=== PATIENT | female | born 1995 | race Caucasian/White ===

== ENCOUNTER → 2017-10-27 | Outpatient (REF) | payer BC, OTHER | LOC: M LAB REF 13:05 | DX: J11.1 Influenza due to unidentified influenza virus with other respiratory manifestations (principal) | CPT/HCPCS: 87633 ==

== ENCOUNTER 2018-04-18 12:10 | Emergency (ER) | payer BC, OTHER ==
[2018-04-18] MEDS: NORCO, ANEXSIA 5/325MG TABLET (HYDROcodone/ACETAMINOPHEN) PO (12:51)
== END 2018-04-18 13:38 | disposition home or self-care (01) ==
LOC: M ED 12:10
DX: M25.561 Pain in right knee (principal); Z87.828 Personal history of other (healed) physical injury and trauma; Z88.8 Allergy status to other drugs, medicaments and biological substances; Z88.1 Allergy status to other antibiotic agents; Z91.011 Allergy to milk products
CPT/HCPCS: 73564

== ENCOUNTER → 2018-04-26 | Outpatient (CLI) | payer BC | LOC: M RAD 17:42 | DX: M25.561 Pain in right knee (principal); M25.461 Effusion, right knee | CPT/HCPCS: 73721 ==

== ENCOUNTER → 2018-08-31 | Outpatient (CLI) | payer BC ==
[~2018-08-31] MED LIST: MOBI4TAB PO; NORCOTAB PO
[2018-08-31 12:01] LABS: ALT/SGPT 16 U/L (12-78); BILIRUBIN,TOTAL 0.2 MG/DL (0.2-1.0); GLOMERULAR FILTRATION RATE > 60.0 (>60); GLUCOSE CHALLENGE TEST 1 HOUR 109 MG/DL (LESS THAN 140); LDH LACTATE DEHYDROGENASE 191 U/L (84-246); URIC ACID 5.2 MG/DL (2.6-6.0)
[2018-08-31 12:29] LABS: BASO % 0.4 % (0.0-1.0); EOS # 0.1 10^3/uL (0.0-0.50); EOS % 1.1 % (0.0-3.0); HEMOGLOBIN 13.3 g/dl (12.0-15.5); LYMPH # 1.6 10^3/uL (1.5-6.5); LYMPH % 14.8 % (24.0-44.0); MEAN CORPUSCULAR HEMOGLOBIN 28.8 pg (27.0-33.0); MEAN CORPUSCULAR HGB CONC 34.1 g/dl (32.0-36.5); MEAN CORPUSCULAR VOLUME 84.4 fl (80.0-96.0); MONO # 0.5 10^3/uL (0.0-0.8); MONO % 4.9 % (0.0-5.0); NEUTROPHILS # 8.5 10^3/uL (1.8-7.7); NEUTROPHILS % 78.4 % (36.0-66.0); PLATELET COUNT, AUTOMATED 319 10^3/uL (150-450); RED BLOOD COUNT 4.62 10^6/uL (4.00-5.40); WHITE BLOOD COUNT 10.9 10^3/uL (4.0-10.0)
[2018-08-31 12:41] LABS: TOTAL PROTEIN,RANDOM URINE 16.2 MG/DL (0.0-12.0)
[2018-08-31 12:52] LABS: CHLAMYDIA DNA AMPLIFICATION NEGATIVE (NEGATIVE); GC DNA AMPLIFICATION NEGATIVE (NEGATIVE)
[2018-09-01 09:57] LABS: RUBELLA IgG QUALITATIVE IMMUNE (IMMUNE)
[2018-09-01 10:27] LABS: HEPATITIS C VIRUS ABY INDEX 0.1 INDEX (<0.8); HIV 1&2 SCREEN CENTAUR NEGATIVE (NEGATIVE)
== END ==
LOC: M LAB 09:29
PROVIDERS: ATTEND Obstetrics & Gynecology
DX: Z34.81 Encounter for supervision of other normal pregnancy, first trimester (principal)

== ENCOUNTER 2018-10-13 13:37 | Emergency (ER) | payer BC ==
[~2018-10-13] VITALS: Ht 172.7 cm; Wt 127.3 kg
[2018-10-13 13:38] VITALS: BP 147/83
[2018-10-13] MEDS ORDERED: AMOX-CLAV (13:51)
[2018-10-13] MEDS ORDERED: PRENTAB55 PO (13:51)
[2018-10-13] MEDS ORDERED: ACET500T15 PO (13:51)
[2018-10-13] MEDS ORDERED: ENOX40IN3 (13:51)
--- NOTE | 2018-10-13 14:40 | REP ---
Clinical: Left calf pain . Technique: Norris scale and color Doppler evaluation using linear high frequency transducer. Findings: Ultrasound examination of the left lower extremity deep venous structures from the common femoral vein to the popliteal vein demonstrates normal compressibility flow and wave patterns in response to respiration and augmentation. There is no evidence for deep venous thrombosis. Impression: No evidence for deep venous thrombosis. Electronically Signed by José Oliveira MD 10/13/2018 02:31 P
== END 2018-10-13 14:41 | disposition home or self-care (01) ==
LOC: M ED 13:37
DX: O99.412 Diseases of the circulatory system complicating pregnancy, second trimester (principal); M79.662 Pain in left lower leg; Z86.718 Personal history of other venous thrombosis and embolism; Z86.711 Personal history of pulmonary embolism; Z88.1 Allergy status to other antibiotic agents; Z88.8 Allergy status to other drugs, medicaments and biological substances; Z91.011 Allergy to milk products; Z79.01 Long term (current) use of anticoagulants; Z79.899 Other long term (current) drug therapy; Z3A.16 16 weeks gestation of pregnancy

== ENCOUNTER → 2018-11-15 | Outpatient (CLI) | payer BC ==
[~2018-11-15] MED LIST changes: +ACET500T15 PO; +AMOX-CLAV; +ENOX40IN3; +PRENTAB55 PO
--- NOTE | 2018-11-15 19:50 | REP ---
Clinical: Anatomical evaluation. Comparison: None . Findings: Examination demonstrates a single live intrauterine in cephalic presentation. motion is identified by technologist. Placenta is noted posterior fundal and grade grade zero without evidence for placenta previa or abruption. Amniotic fluid volume is normal. Cervix measures 3.8 cm in length and appears closed. No evidence for nuchal cord. Gestational age by LMP 20 weeks 6 days with KIRTI 03/29/2019 . Gestational age by current measurements 22 weeks 1 day with KIRTI 03/20/2019 . FHR equals 163 beats per minute. BPD 5.2 cm 21 weeks 5 days HC 19.2 cm 21 weeks 3 days AC 18.5 cm 23 weeks 2-day FL 3.9 cm 22 weeks 4-day HL 3.5 cm 21 weeks 6 days HC/AC ratio 1.04 Estimated weight 532 grams ( 65th percentile). Anatomical assessment demonstrates normal structures including cranium, choroid plexus, cavum, cerebellum/posterior fossa, facial features, lungs, diaphragm, stomach, cord insertion/three-vessel cord, kidneys/bladder, spine, and extremities. Impression: 1. Single live intrauterine in cephalic presentation demonstrating appropriate interval growth. 2. Limited evaluation of the heart and ventricular outflow tracts noted. Remainder of the anatomical assessment is complete and normal. Electronically Signed by José Oliveira MD 11/15/2018 07:41 P
== END ==
LOC: M RAD 16:31
PROVIDERS: ATTEND Obstetrics & Gynecology
DX: O10.011 Pre-existing essential hypertension complicating pregnancy, first trimester (principal); Z3A.22 22 weeks gestation of pregnancy

== ENCOUNTER → 2018-12-16 | Outpatient (CLI) | payer BC ==
[~2018-12-16] MED LIST changes: +HYDR-3715 PO; -NORCOTAB PO
[2018-12-16 15:36] LABS: HEMATOCRIT 37.9 % (36.0-47.0); HEMOGLOBIN 12.6 g/dl (12.0-15.5); MEAN CORPUSCULAR HEMOGLOBIN 28.9 pg (27.0-33.0); MEAN CORPUSCULAR HGB CONC 33.2 g/dl (32.0-36.5); MEAN CORPUSCULAR VOLUME 86.9 fl (80.0-96.0); PLATELET COUNT, AUTOMATED 295 10^3/uL (150-450); RED BLOOD COUNT 4.36 10^6/uL (4.00-5.40); WHITE BLOOD COUNT 14.6 10^3/uL (4.0-10.0)
== END ==
LOC: M LAB 14:12
PROVIDERS: ATTEND Advanced Practice Midwife
DX: O99.412 Diseases of the circulatory system complicating pregnancy, second trimester (principal); Z3A.00 Weeks of gestation of pregnancy not specified

== ENCOUNTER → 2018-12-16 | Outpatient (CLI) | payer BC ==
--- NOTE | 2018-12-16 14:31 | REP ---
Clinical: Anatomical evaluation. Comparison: 11/15/2018 . Findings: Examination demonstrates a single live intrauterine in breech presentation. motion is identified by technologist. Placenta is noted posterior fundal and grade the grade zero without evidence for placenta previa or abruption. Amniotic fluid volume is normal. Cervix measures 4.3 cm in length and appears closed. No evidence for nuchal cord. Gestational age by LMP 25 weeks 2 days with KIRTI 03/29/2019 . Gestational age by current measurements 26 weeks 0 days with KIRTI 03/24/2019 . FHR equals 140 beats per minute. Estimated weight 943 grams ( 40th percentile based on age by first ultrasound and 26 weeks 4 days ). Anatomical assessment demonstrates normal structures including cranium, choroid plexus, cavum, cerebellum/posterior fossa, facial features, lungs, four-chamber heart/ventricular outflow tracts, diaphragm, stomach, cord insertion/three-vessel cord, kidneys/bladder, and lower extremities. Impression: 1. Single live intrauterine in breech presentation demonstrating appropriate interval growth. 2. In conjunction with prior examination anatomical assessment is complete and normal. Electronically Signed by José Oliveira MD 12/16/2018 02:23 P
== END ==
LOC: M RAD 13:09
PROVIDERS: ATTEND Advanced Practice Midwife
DX: O99.412 Diseases of the circulatory system complicating pregnancy, second trimester (principal); O32.1XX0 Maternal care for breech presentation, not applicable or unspecified; Z3A.25 25 weeks gestation of pregnancy

== ENCOUNTER 2019-01-24 19:12 | Outpatient (CLI) | payer BC ==
[~2019-01-24] VITALS: Ht 172.7 cm; Wt 126.7 kg
[2019-01-24 19:35] VITALS: BP 137/73
[2019-01-24 20:07] LABS: APPEARANCE, URINE HAZY (CLEAR); BACTERIA, URINE AUTO 1+ (NEGATIVE); BILIRUBIN, URINE AUTO NEGATIVE (NEGATIVE); BLOOD, URINE BLOOD NEGATIVE (NEGATIVE); CALCIUM OXALATE CRYSTALS SMALL; COLOR, URINE YELLOW (YELLOW); GLUCOSE, URINE (UA) AUTO NEGATIVE (NEGATIVE); KETONE, URINE AUTO NEGATIVE (NEGATIVE); LEUKOCYTE ESTERASE, URINE AUTO TRACE (NEGATIVE); MUCUS, URINE SMALL (NEGATIVE); NITRITE, URINE AUTO NEGATIVE (NEGATIVE); PROTEIN, URINE AUTO NEGATIVE (NEGATIVE); RBC, URINE AUTO 2 /HPF (0-3); SPECIFIC GRAVITY URINE AUTO 1.023 (1.002-1.035); SQUAMOUS EPITHELIAL CELL UR AU 6 /HPF (0-6); UROBILINOGEN, URINE AUTO 0.2 mg/dL (0.0-2.0); WBC, URINE AUTO 7 /HPF (0-3)
[2019-01-24] MEDS ORDERED: LOVE1INJ SC (20:23)
[2019-01-24] MEDS ORDERED: PRENTAB9 PO (20:23)
--- NOTE | 2019-01-24 22:22 | IPNPDOC ---
Text Note Date of Service The patient was seen on 01/24/19. NOTE Subjective: Patient is a at 30.6 weeks gestation with an KIRTI of 03/29/19 based off of her LMP and consistent with her 1st trimester ultrasound. Her has been complicated with CHTN, a history of pulmonary embolism and current DVT-chronic in left iliac artery of left leg, and morbid obesity. She presents to L&D with complaints of abdominal tightening and that occurred over the weekend and stopped. Yesterday she reports at 2 pm some period like cramping, cervical pain, and abdominal tightening that did resolve. She reports this happened again today and she thought she should be seen for it. She reports when she does get the pain she rates it a 4/10. It is intermittent and not constant. She denies any vaginal bleeding, leaking of fluid, vaginal itching, vaginal discharge, or dysuria. She reports active movement. 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 Contractions every 2-5 minutes. A+Ox3. Respiratory: regular rate with no use of accessory muscles. Abdomen: gravid and soft to palpation. Speculum exam: cervix appears thick and about a FT dilated. FFN obtained and GBS obtained. SVE: cervical os is closed but external cervical os is about a FT, difficult to determine effacement. Urine analysis: see below. Assessment: IUP at 30.6 weeks gestation, contractions, Category I FHR t racing Plan: Patient given fluids and encouraged to drink. Cervical length ordered. Will send FFN if cervical length is less than 2.5 cm. A-FIB/CHADSVASC A-FIB History Current/History of A-Fib/PAF?: No Current Oral Anticoagulant The: No VS,Fishbone, I+O VS, Fishbone, I+O Vital Signs Date Time Temp Pulse Resp B/P (MAP) Pulse Ox O2 Delivery O2 Flow Rate FiO2 01/24/19 19:35 97.7 102 137/73 (94) Item Value Date Time Urine Color YELLOW 01/24/191938 Urine Appearance HAZY 01/24/191938 Urine pH 5.0 UNITS 01/24/191938 Urine Specific [place] 1.023 01/24/191938 Urine Protein NEGATIVE mg/dL 01/24/191938 Urine Glucose (UA) NEGATIVE mg/dL 01/24/191938 Urine Ketones NEGATIVE mg/dL 01/24/191938 Urine Blood NEGATIVE 01/24/191938 Urine Nitrite NEGATIVE 01/24/191938 Urine Bilirubin NEGATIVE 01/24/191938 Urine Urobilinogen 0.2 mg/dL 01/24/191938 Urine Leukocyte Esterase TRACE H 01/24/191938 Urine WBC (Auto) 7 /HPF H 01/24/191938 Urine RBC (Auto) 2 /HPF 01/24/191938 Urine Hyaline Casts (Auto) 0 /LPF 01/24/191938 Urine Bacteria (Auto) 1+ H 01/24/191938 Urine Squamous Epithelial Cells 6 /HPF 01/24/191938 Urine Calcium Oxalate Cryst (Auto) SMALL 01/24/191938 Urine Mucus (Auto) SMALL 01/24/191938 JONATHON SORENSON CNM January 24, 2019 22:22
--- NOTE | 2019-01-24 23:00 | REPVR ---
EXAM: US , Transvaginal EXAM DATE/TIME: 01/24/2019 10:20 PM CLINICAL HISTORY: 23 years old, female; Signs and symptoms; Lmp or gestational age (in weeks): Lmp 06/22/18; Labor and delivery abnormalities; Pre-term labor; Without delivery; ; Additional info: contractions and cervical length TECHNIQUE: Imaging protocol: Real-time transvaginal obstetrical ultrasound of the maternal pelvis and a first trimester with image documentation. Transvaginal imaging was used for better evaluation of the fetus and adnexa. COMPARISON: US OBS FOLL UP OR REPEAT EACH GES 12/16/2018 1:23 PM FINDINGS: GESTATION: Gestation: Single intrauterine fetus. Heart rate: heartbeat of 144 beats per minute. Presentation: Cephalic presentation. Placenta: Placenta is on the right laterally. MATERNAL: Cervix: The cervix measures 3.6-4.2 cm transvaginal with no beaking of the internal os. IMPRESSION: 1. Single live intrauterine fetus in cephalic presentation. 2. Closed cervix measuring 3.6-4.2 cm transvaginal with no beaking of the internal os. Electronically signed by: Elie Wolfe On 01/24/2019 23:00:31 PM
--- NOTE | 2019-01-24 23:07 | IPNPDOC ---
Text Note Date of Service The patient was seen on 01/24/19. NOTE Subjective: Patient reports she still feels some abdominal tightening but there is no pain with it. She also reports she does not feel any vaginal pain or menstrual like cramping anymore. She reports active movement. Objective: FHR 140. Reactive NST prior to sono. Abdomen soft with palpation. Cervical length via transvaginal ultrasound is 3.6 cm. Assessment: IUP at 30.6 week gestation; contractions, not in labor Plan: Patient discharged to home with . Patient instructed to call with any vaginal bleeding, leaking of fluid, more than 6 contractions in an hour that are more than abdominal tightening, decreased movement, fever, abdominal trauma, or any other danger signs. She is to follow-up next week with her routine OB appointment. A-FIB/CHADSVASC A-FIB History Current/History of A-Fib/PAF?: No Current Oral Anticoagulant The: No VS,Fishbone, I+O VS, Fishbone, I+O Vital Signs Date Time Temp Pulse Resp B/P (MAP) Pulse Ox O2 Delivery O2 Flow Rate FiO2 01/24/19 19:35 97.7 102 137/73 (94) JONATHON SORENSON CNM January 24, 2019 23:07
== END 2019-01-24 22:45 | disposition home or self-care (01) ==
LOC: M LDO 19:12
PROVIDERS: ATTEND Advanced Practice Midwife
DX: O26.893 Other specified pregnancy related conditions, third trimester (principal); R10.84 Generalized abdominal pain; O10.02 Pre-existing essential hypertension complicating childbirth; M79.605 Pain in left leg; M32.10 Systemic lupus erythematosus, organ or system involvement unspecified; O22.33 Deep phlebothrombosis in pregnancy, third trimester; I82.401 Acute embolism and thrombosis of unspecified deep veins of right lower extremity; O47.03 False labor before 37 completed weeks of gestation, third trimester; Z3A.30 30 weeks gestation of pregnancy
CPT/HCPCS: 59025; 76817; 81001; G0378; G0463

== ENCOUNTER → 2019-02-08 | Outpatient (CLI) | payer BC ==
[~2019-02-08] MED LIST changes: +LOVE1INJ SC; +PRENTAB9 PO
--- NOTE | 2019-02-08 16:50 | REP ---
OB ULTRASOUND: Real-time sonographic evaluation of the gravid uterus is performed. There is a single living intrauterine gestation, estimated gestational age 34 weeks 2 days, EDC 03/20/2019. Today's measurements indicate appropriate growth. BPD 86 mm = 34 weeks 4 days, 53rd percentile HC 307 mm = 34 weeks 2 days, 49th percentile AC 305 mm = 34 weeks 3 days, 52nd percentile FL 66 mm = 34 weeks 0 days, 46th percentile HC/AC ratio 1.01 within normal range. Estimated weight 3298 grams, 46th percentile. Cervix is closed and measures 4 cm in length. heart rate 146 beats per minute. Amniotic fluid within normal limits. EBER 10.8, within normal range of 8.0 to 24.8. S/D ratio 2.18, within normal range of 2.0 to 3.0. RI 0.54, slightly below normal range of 0.59 to 0.75. Visualized anatomy today includes the upper lip, stomach, cord insertion, three vessel cord, kidneys and bladder which are grossly unremarkable. position vertex. Placenta fundal and to the right, grade 0 with no previa or abruption. Electronically Signed by Zane Norris MD 02/08/2019 05:09 P
== END ==
LOC: M RAD 15:39
PROVIDERS: ATTEND Advanced Practice Midwife
DX: O10.013 Pre-existing essential hypertension complicating pregnancy, third trimester (principal); Z3A.34 34 weeks gestation of pregnancy

== ENCOUNTER → 2019-02-25 | Outpatient (CLI) | payer BC ==
[~2019-02-25] MED LIST changes: +HEPA1INJ5 SQ
[2019-02-25 13:27] LABS: HEMATOCRIT 38.4 % (36.0-47.0); HEMOGLOBIN 12.7 g/dl (12.0-15.5); MEAN CORPUSCULAR HGB CONC 33.1 g/dl (32.0-36.5); MEAN CORPUSCULAR VOLUME 81.5 fl (80.0-96.0); PLATELET COUNT, AUTOMATED 309 10^3/uL (150-450); RED BLOOD COUNT 4.71 10^6/uL (4.00-5.40); WHITE BLOOD COUNT 11.6 10^3/uL (4.0-10.0)
[2019-02-25 14:13] LABS: ALT/SGPT 27 U/L (12-78); BILIRUBIN,TOTAL 0.3 MG/DL (0.2-1.0); CREATININE FOR GFR 0.52 MG/DL (0.55-1.30); GLOMERULAR FILTRATION RATE > 60.0 (>60); LDH LACTATE DEHYDROGENASE 190 U/L (84-246); URIC ACID 4.5 MG/DL (2.6-6.0)
== END ==
LOC: M LAB 12:22
PROVIDERS: ATTEND Obstetrics & Gynecology
DX: O10.013 Pre-existing essential hypertension complicating pregnancy, third trimester (principal)

== ENCOUNTER → 2019-02-25 | Outpatient (REF) | payer BC ==
[2019-02-25 14:02] LABS: TOTAL PROTEIN,RANDOM URINE 17.5 MG/DL (0.0-12.0)
== END ==
LOC: M LAB REF 13:09
PROVIDERS: ATTEND Obstetrics & Gynecology
DX: O10.013 Pre-existing essential hypertension complicating pregnancy, third trimester (principal)

== ENCOUNTER 2019-02-28 11:30 | Outpatient (CLI) | payer BC ==
[2019-02-28] VITALS (10 sets, daily range): BP systolic 117–136; BP diastolic 56–75
[~2019-02-28] VITALS: Ht 172.7 cm; Wt 129.5 kg
[~2019-02-28 11:30] MED LIST changes: -ACET-683 PO; -HEPA1INJ5 SQ; -IBUP80TA PO
[2019-02-28] MEDS ORDERED: BETAMETHASONE SOLUSPAN 6MG/ML INJ 5ML (J0702) IM SCH (12:45)
[2019-02-28 13:17] LABS: HEMATOCRIT 37.8 % (36.0-47.0); HEMOGLOBIN 12.2 g/dl (12.0-15.5); MEAN CORPUSCULAR HEMOGLOBIN 26.4 pg (27.0-33.0); MEAN CORPUSCULAR HGB CONC 32.3 g/dl (32.0-36.5); MEAN CORPUSCULAR VOLUME 81.8 fl (80.0-96.0); PLATELET COUNT, AUTOMATED 290 10^3/uL (150-450); RED BLOOD COUNT 4.62 10^6/uL (4.00-5.40)
[2019-02-28 13:38] LABS: ALT/SGPT 34 U/L (12-78); BILIRUBIN,TOTAL 0.1 MG/DL (0.2-1.0); CREATININE FOR GFR 0.59 MG/DL (0.55-1.30); GLOMERULAR FILTRATION RATE > 60.0 (>60); LDH LACTATE DEHYDROGENASE 182 U/L (84-246); URIC ACID 4.9 MG/DL (2.6-6.0)
--- NOTE | 2019-02-28 17:51 | IPNPDOC ---
Text Note Date of Service The patient was seen on 02/28/19. NOTE Subjective: Patient is a 23-year-old female who is 35.6 weeks gestation with an KIRTI of 03/29/19 based off of her LMP and consistent with her 1st trimester ultrasound. Her has been complicated by CHTN, +lupus anticoagulants, a history of bilateral pulmonary embolisms and a chronic DVT in her left leg in the iliac artery. She is on Lovenox daily and is going to make the switch to heparin. She was sent to L&D today by Dr. Beach for betamethasone injections. She is scheduled for 37 weeks for an IOL but has had increasing BP's but not in severe ranges. Her BP in office today was 156/88. She denies any preeclamptic signs or symptoms. She reports active movement. She denies contractions, leaking of fluid. or vaginal bleeding. Objective: VS and labs: See below. FHR: 125, moderate variability, positive accelerations, no decelerations. Contractions: occasional. Assessment: IUP at 35.6 weeks gestation, SLE, CHTN, Category I FHR Plan: Discharged to home with mother. She is to return at 1300 tomorrow. Reviewed access to care, kick count, labor signs, and danger signs to report. Extensive counseling done on preeclamptic signs. VS,Karmene, I+O VS, Vincentbone, I+O Laboratory Tests 02/28/19 12:59 Red Blood Count 4.62, Mean Corpuscular Volume 81.8, Mean Corpuscular Hemoglobin 26.4 L, Mean Corpuscular Hemoglobin Concent 32.3, Red Cell Distribution Width 13.2, Aspartate Amino Transf (AST/SGOT) 24, Alanine Aminotransferase (ALT/SGPT) 34, Lactate Dehydrogenase 182, Total Bilirubin 0.1 L, Uric Acid 4.9 Item Value Date Time Urine Random Creatinine 87.9 MG/DL 02/28/19 1440 Urine Random Total Protein 8.5 MG/DL 02/28/19 1440 Vital Signs Date Time Temp Pulse Resp B/P (MAP) Pulse Ox O2 Delivery O2 Flow Rate FiO2 02/28/19 15:41 92 16 121/56 (77) 02/28/19 15:11 98.6 02/28/19 12:01 98 Vital Signs Label Value Date Time Patient Temperature 97.9 degrees F 02/28/19 1201 Temperature Source Temporal 02/28/19 1201 Pulse 99 02/28/19 1201 Respiratory Rate 16 bpm 02/28/19 1201 Blood Pressure Assessment 134/61 (85) 02/28/19 1201 Source Automatic Cuff (NIBP) Bedside Pulse Oximetry 98 % 02/28/19 1201 JONATHON SORENSON CNM Feb 28, 2019 17:51
[2019-03-01] MEDS ORDERED: HEPA1INJ5 SQ (13:22)
== END 2019-02-28 16:30 | disposition home or self-care (01) ==
LOC: M LDO 11:30
PROVIDERS: ATTEND Advanced Practice Midwife
DX: O16.9 Unspecified maternal hypertension, unspecified trimester (principal); O99.119 Other diseases of the blood and blood-forming organs and certain disorders involving the immune mechanism complicating pregnancy, unspecified trimester; O26.893 Other specified pregnancy related conditions, third trimester; M32.10 Systemic lupus erythematosus, organ or system involvement unspecified; O99.89 Other specified diseases and conditions complicating pregnancy, childbirth and the puerperium; Z86.711 Personal history of pulmonary embolism; Z79.01 Long term (current) use of anticoagulants; Z3A.35 35 weeks gestation of pregnancy
CPT/HCPCS: 36415; 59025; 82247; 82565; 82570; 83615; 84156; 84450; 84460; 84550; 85027; 96372; G0378; G0463; J0702

== ENCOUNTER → 2019-02-28 | Outpatient (REF) | payer BC ==
[~2019-02-28] MED LIST changes: +ACET-683 PO; +IBUP80TA PO
== END ==
LOC: M LAB REF 12:56
PROVIDERS: ATTEND Obstetrics & Gynecology
DX: O10.013 Pre-existing essential hypertension complicating pregnancy, third trimester (principal)

== ENCOUNTER 2019-03-01 12:52 | Inpatient (IN) | payer BC ==
[2019-03-01] VITALS (32 sets, daily range): BP systolic 110–143; BP diastolic 56–87
[~2019-03-01] VITALS: Ht 172.7 cm; Wt 128.4 kg
[2019-03-01] MEDS ORDERED: HEPA1INJ5 SQ (13:22)
[2019-03-01] MEDS ORDERED: BETAMETHASONE SOLUSPAN 6MG/ML INJ 5ML (J0702) IM ONE (17:00)
[2019-03-01] MEDS ORDERED: FIORICET TAB PO ONE (19:30)
[2019-03-01] MEDS ORDERED: LR 1,000 ML IV SCH (20:06)
[2019-03-01] MEDS ORDERED: LACTATED RINGER'S 1000 ML IV STA (20:06)
[2019-03-01] MEDS ORDERED: ACETAMINOPHEN 500 MG TAB PO ONE (20:45)
[2019-03-01 21:21] LABS: HEMOGLOBIN 12.3 g/dl (12.0-15.5); MEAN CORPUSCULAR HEMOGLOBIN 26.8 pg (27.0-33.0); MEAN CORPUSCULAR HGB CONC 33.2 g/dl (32.0-36.5); MEAN CORPUSCULAR VOLUME 80.6 fl (80.0-96.0); PLATELET COUNT, AUTOMATED 308 10^3/uL (150-450); RED BLOOD COUNT 4.59 10^6/uL (4.00-5.40)
[2019-03-01 21:32] LABS: ALT/SGPT 41 U/L (12-78); BILIRUBIN,TOTAL 0.3 MG/DL (0.2-1.0); CREATININE FOR GFR 0.67 MG/DL (0.55-1.30); GLOMERULAR FILTRATION RATE > 60.0 (>60); LDH LACTATE DEHYDROGENASE 723 U/L (84-246); URIC ACID 5.9 MG/DL (2.6-6.0)
[2019-03-01] MEDS ORDERED: OXYTOCIN DRIP 30 UNITS in APPROPRIATE DILUENT 1 EA IV SCH (22:30)
--- NOTE | 2019-03-01 23:40 | NUR ---
L&D H&P 23yo at 36+0 weeks EGA. Her is dated by a first TM US. Presents today with continued complaints of intermittent headaches, fatigue, chest discomfort/palpitations, and shortness of breath. She has a diagnosis of CHTN and has been evaluated on multiple occasions during the third trimester for superimposed pre-eclampsia. Although labs have been within normal limits, she continues to have classic symptoms of pre-eclampsia. Her BP has been intermittently elevated during her multiple evaluations. Reports +FM. Denies VB/LOF/uctx. history / course: 1. First complicated by severe pre-e, successful IOL at 37 weeks. 2. DVT/bilateral PE; currently on intermediate dosing of VTE prophylaxis. Pt had AM dose of Heparin 10K SC 3. Obesity 4. Chronic hypertension 5. Steroid course completed today; first dose on 02/28. PN labs: A+, ABscreen negative, Rub Imm, HIV neg, HepBsAg NR, RPR NR, GC/CT neg, GDM screening negative. GBS pending. PMH: CHTN, h/o VTE SH: T&A Meds: PNV, Heparin 10K SC BID (recently transitioned from Lovenox 40mg BID) All: Cephalosporins, budesonide OB: G1, , IOL at 37 weeks c/b severe pre-e and VTE. JEWEL STRINGER: No dysplasia or STI/gHSV Sochx: no t/e/d Intermittently hypertensive, normal HR, afebrile Gen: A&Ox4. H: RRR no m/g/r L: CTA b/l no w/c/r/r Abd: soft, nt, nd, uterine fundus nontender Ext: no c/c/e FHR: Cat I [place]: no ctxs Labs: see [employer] A/P: 23yo at 36+0 weeks. CHTN w/ superimposed pre-e (by symptoms). steroid course completed. Reassuring status. -Discussed plan for IOL secondary to dx of CHTN w/ superimposed pre-e. Pt in full agreement. -Mag sulfate if symptoms progress/intensify, IV antihypertensives PRN. -IOL via Cook balloon and Pit. -Monitor closely. -Hold VTE prophylaxis for now; restart once bleeding deemed stable/controlled. -GBS prophylaxis until status is known. Levar Beach, DO
[2019-03-01] MEDS ORDERED: PENICILLIN G POTASSIUM IV 5 MU in D5W MINI-BAG PLUS 100 ML IV STA (23:52)
[2019-03-02] VITALS (36 sets, daily range): BP systolic 109–147; BP diastolic 50–73
[2019-03-02] MEDS: PENICILLIN G POTASSIUM IV 2.5 MU in APPROPRIATE DILUENT 1 EA IV SCH ×3 (00:20→07:53)
--- NOTE | 2019-03-02 10:04 | NUR ---
Progress Note Pt had Cook balloon fall out around 0400. No VB/LOF. Currently denies symptoms of NAZARIO, visual changes, RUQ pain, sob, cp. Currently normotensive, normal HR, afebrile SVE at 0700: 4/50/-3, cephalic, intact, no bloody show, mid-position/soft. EFM: Cat I [place]: irreg ctx's ; pit at 10mU/min A/P: Pre-e. IOL. Reassuring status. -Continue pitocin -Consider TRISTAN Beach, DO
[2019-03-02] MEDS ORDERED: BUTORPHANOL 2 MG/ML INJ (J0595) IV ONE (21:45)
[2019-03-02] MEDS ORDERED: PROMETHAZINE INJ 25 MG/ML VIAL (J2550) IV ONE (21:45)
[2019-03-03] MEDS ORDERED: OXYTOCIN 30 UNITS IN 0.9% NaCl 500ML IV BAG (J2590) As Ordered ONE (00:18)
[2019-03-03] MEDS ORDERED: OXYTOCIN DRIP 30 UNITS in APPROPRIATE DILUENT 1 EA IV SCH (00:22)
[2019-03-03] MEDS ORDERED: DOCUSATE SODIUM 100 MG CAP PO PRN (00:30)
[2019-03-03] MEDS ORDERED: RHOGAM 300 MCG (1500 IU) INJ (J2790) IM SCH (00:30)
[2019-03-03] MEDS ORDERED: ACETAMINOPHEN 500 MG TAB PO PRN (00:30)
[2019-03-03] MEDS ORDERED: DIBUCAINE 1% OINTMENT 30GM TOP PRN (00:30)
[2019-03-03] MEDS ORDERED: MEASLES,MUMPS,RUBELLA VACCINE INJ (MMR-II) (90707) SC SCH (00:30)
[2019-03-03] MEDS ORDERED: ACETAMINOPHEN TAB 650MG DOSE (2X325MG) PO PRN (00:30)
[2019-03-03] MEDS ORDERED: IBUPROFEN 600 MG TAB PO PRN (00:30)
[2019-03-03 03:13] VITALS: BP 133/63
--- NOTE | 2019-03-03 04:59 | DN ---
DATE: 03/03/2019 Michael is a 23-year-old 2, para 1-1-0-2 now was admitted to labor and delivery for induction of labor. Intravenous (IV) Pitocin Gomez bulb was utilized and labor did ensue. She did use IV pain medications to cope with her labor. She did reach full dilation at 2356. She pushed to a normal spontaneous vaginal delivery of a live female in occiput anterior (OA) position with restitution to right occiput transverse (ROT) position at 2358. There was a nuchal cord times one tight that was reduced with somersault maneuver at the time of delivery. [place] shoulders delivered with gentle downward traction and the corpus immediately followed. The female was placed on the maternal abdomen crying and active. Mouth and nares were bulb suctioned. The cord was clamped x2 and cut by the father of the baby under my direction. Cord blood was obtained. Manual removal of an intact placenta with three-vessel cord was at 004. Uterine hemostasis achieved with IV Pitocin rapid infusion and uterine fundal massage. Estimated blood loss 350 mL. Perineum and vagina were inspected and noted to be intact. The female weighed 3360 grams, 7 pounds and 7 ounces, Apgars 9 and 9 and nine family have named their daughter Hyun and the mom is going to breastfeed her baby. At the close of delivery lap counts and instrument counts were correct and verified.
[2019-03-03 06:11] VITALS: BP 144/69
[2019-03-03] MEDS: PRENATAL VITAMINS CHEWABLE TABLET PO SCH (07:35)
[2019-03-03] MEDS: IBUPROFEN 800 MG TAB PO PRN ×2 (17:15→21:22)
[2019-03-03 18:00] VITALS: BP 125/63
[2019-03-04 06:00] VITALS: BP 135/69
[2019-03-04] MEDS ORDERED: ACET-683 PO (07:09)
[2019-03-04] MEDS ORDERED: IBUP80TA PO (07:09)
[2019-03-04] MEDS: PRENATAL VITAMINS CHEWABLE TABLET PO SCH (09:38)
[2019-03-04] MEDS: IBUPROFEN 800 MG TAB PO PRN (09:38)
== END 2019-03-04 10:15 | disposition home or self-care (01) | DRG 560 ==
LOC: M LDO 12:52 → M LDI 20:08 → M OBS 03-03 02:49
PROVIDERS: ADMIT Obstetrics & Gynecology; ATTEND Obstetrics & Gynecology
PROC: 3E033VJ Introduction of Other Hormone into Peripheral Vein, Percutaneous Approach (ICD-10-PCS; 2019-03-01)
PROC: 10E0XZZ Delivery of Products of Conception, External Approach (ICD-10-PCS; principal; 2019-03-03)
DX: O11.4 Pre-existing hypertension with pre-eclampsia, complicating childbirth (principal); E66.9 Obesity, unspecified; Z37.0 Single live birth; Z3A.36 36 weeks gestation of pregnancy; O99.214 Obesity complicating childbirth; O69.89X0 Labor and delivery complicated by other cord complications, not applicable or unspecified; O73.0 Retained placenta without hemorrhage

== ENCOUNTER 2019-03-28 17:39 | Inpatient (IN) | payer BC ==
[~2019-03-28] VITALS: Ht 172.7 cm; Wt 117.0 kg
[~2019-03-28 17:39] MED LIST changes: +ACET-683 PO; +HEPA1INJ5 SQ; +IBUP80TA PO
[2019-03-28] MEDS ORDERED: ENOX40IN3 SC (17:50)
[2019-03-28] MEDS ORDERED: ADVI100T PO (17:50)
[2019-03-28] MEDS ORDERED: ISOVUE-370 76% 100ML VIAL (Q9967) As Ordered ONE (18:23)
[2019-03-28 18:49] LABS: INR 1.06; PROTHROMBIN TIME 13.5 SECONDS (11.8-14.0)
[2019-03-28 18:50] LABS: PARTIAL THROMBOPLASTIN TIME 29.9 SECONDS (25.0-38.4)
[2019-03-28] MEDS ORDERED: IBUP200C25 PO (18:58)
[2019-03-28] MEDS ORDERED: ENOXAPARIN 100MG/1ML SYRINGE (J1650) SC ONE (19:00)
--- NOTE | 2019-03-28 19:00 | REPVR ---
EXAM: CT Angiography Chest With Contrast EXAM DATE/TIME: 03/28/2019 5:53 PM CLINICAL HISTORY: 24 years old, female; Pain; Other: Left ribs; Additional info: R/O pe TECHNIQUE: Imaging protocol: Axial computed tomographic angiography images of the chest with intravenous contrast using CT angiography protocol. Coronal and sagittal reformatted images were created and reviewed. 3D rendering: MIP reconstructed images were created and reviewed. Radiation optimization: All CT scans at this facility use at least one of these dose optimization techniques: automated exposure control; mA and/or kV adjustment per patient size (includes targeted exams where dose is matched to clinical indication); or iterative reconstruction. Contrast material: ISOVUE 370; Contrast volume: 75 ml; Contrast route: IV; COMPARISON: CT ANGIO CHEST 08/26/2012 12:33 PM FINDINGS: Pulmonary arteries: The study is highly positive for pulmonary embolus bilaterally. There is a moderate to large sized filling defect of the descending left pulmonary artery and extending into multiple branches of the pulmonary artery left infrahilar region to the left lung base. There is a large filling defect in the descending right pulmonary artery consistent with a focal large pulmonary embolus. Moderate-sized emboli extend into infrahilar branches. Aorta: There is opacification of the aorta which appears intact. Lungs: There is a 4 CM oval area of density at the left lung base consistent with atelectasis and infiltrate probably related to the left pulmonary embolus. This involves the left lower lobe. Smaller patchy areas left base of the lung are also noted. Pleural space: There is no evidence of pneumothorax. There is no evidence of pleural effusion. Heart: There is mild prominence of the heart. There is no pericardial effusion. IMPRESSION: 1. Moderate to large pulmonary emboli right and left lower lobe pulmonary artery with moderate emboli extending into the infrahilar pulmonary arteries to the lung bases. 2. 4 cm area atelectasis and infiltrate left lung base probably related to the pulmonary embolus. Electronically signed by: Jose Henriquez On 03/28/2019 19:00:04 PM
[2019-03-28 19:17] LABS: BLOOD UREA NITROGEN 9 MG/DL (7-18); CALCIUM LEVEL 9.3 MG/DL (8.5-10.1); CARBON DIOXIDE LEVEL 27 MEQ/L (21-32); CHLORIDE LEVEL 107 MEQ/L (98-107); CREATININE FOR GFR 0.99 MG/DL (0.55-1.30); GLOMERULAR FILTRATION RATE > 60.0 (>60); GLUCOSE, FASTING 84 MG/DL (70-100); POTASSIUM SERUM 4.4 MEQ/L (3.5-5.1); SODIUM LEVEL 142 MEQ/L (136-145)
--- NOTE | 2019-03-28 19:55 | HPEPDOC ---
General Date of Admission 03/28/2019 Date of Service: Mar 28, 2019 Attending Physician: JUANCARLOS DAMON MD Chief Complaint The patient is a 24-year-old female admitted with a reason for visit of Rosalinda sullivan. History of Present Illness Patient is a 24-year-old female, presenting to the emergency room on account of chest pain and shortness of breath of sudden onset. Patient has a past medical history significant for hypertension complicating , lupus anticoagulant, pulmonary hypertension, DVT, iliac vein, morbid obesity. On presentation she was found to be tachycardic and tachypneic. CTA completed was positive for moderate to large pulmonary emboli, right and left lower lobe pulmonary artery with moderate emboli extending to Infrahilar pulmonary arteries to lung bases. There was also 2.4 cm area of atelectasis and infiltrate to the left lung base, probably related to pulmonary emboli. Patient is 3 weeks and was on 30 mg Lovenox twice a day, during and currently. She reports been placed on clonidine for a year and a 7:30 years ago when she first had her first and had pulmonary emboli and DVT. Hematology studies revealed patient was lupus anticoagulant positive. She described the pain as a sharp pain to her left sternum with radiation to read's, back, bilateral shoulder blades. At time of assessment, shortness of breath was improved and patient was saturating 97% on room air. Home Medications Scheduled Enoxaparin Sodium (Enoxaparin Sodium) 40 Mg/0.4 Ml Syringe, 40 MG SC BID, (Reported) Scheduled PRN Ibuprofen (Ibuprofen) 200 Mg Capsule, 600 MG PO BID PRN for PAIN, (Reported) Allergies Coded Allergies: bee venom protein (honey bee) (Verified Allergy, Severe, throat swelling, 02/28/19) Cephalosporins (Verified Allergy, Intermediate, HIVES, 01/24/19) budesonide (Verified Allergy, Intermediate, HIVES, 02/28/19) as a child Past Medical History Medical History Morbid obesity. DVT Pulmonary hypertension. Pulmonary emboli Hypertension in . Lupus anticoagulant syndrome Surgical History Tonsils and adenoids removal Ear tubes placement Family History Denies significant family history Social History * Smoker: Denies Alcohol: occationally Drugs: denies A-FIB/CHADSVASC A-FIB History Current/History of A-Fib/PAF?: No Current PO Anticoag Therapy: No Review of Systems Other systems A 10 point pertinent review of systems was completed, negative except as stated in the history of presenting illness. Physical Examination Other physical findings GENERAL: Obese female in no acute distress SKIN : Warm, dry intact HEENT: Atraumatic, normocephalic, PERRL, moist mucous membrane CARDIOVASCULAR: Regular rate and rhythm, S1S2, no JVD, no edema, distal pulses + and palpable RESP: CTAB, no accessory muscle use noted ABDOMEN: BS+ non distended non tender MS: no joint deformities NEURO: Alert and oriented x 3, CN2-12 grossly intact PSYCH: no anxiety or agitation, appropriate mood and affect. Vital Signs Vital Signs Date Time Temp Pulse Resp B/P (MAP) Pulse Ox O2 Delivery O2 Flow Rate FiO2 03/28/19 18:10 03/28/19 18:10 Room Air 03/28/19 17:40 98.4 125 22 97 Laboratory Data Labs 24H Laboratory Tests 2 03/28/19 17:53: Anion Gap 8, Glomerular Filtration Rate > 60.0, Blood Urea Nitrogen 9, Creatinine 0.99, Sodium Level 142, Potassium Level 4.4, Chloride Level 107, Carbon Dioxide Level 27, Calcium Level 9.3 03/28/19 18:00: Prothrombin Time 13.5, Prothromb Time International Ratio 1.06, Activated Partial Thromboplast Time 29.9 CBC/BMP Laboratory Tests 03/28/19 17:53 Calcium Level 9.3 Assessment/Plan Bilateral pulmonary emboli -Occurring in the period. 3 weeks after delivery -Recurrent, prior episode 7 years ago with first and delivery -While on prophylactic dose Lovenox 30 mg subcutaneous twice a day -Ultrasound bilateral lower extremity to evaluate clot burden -Consult vascular surgery for evaluation and input given underlying pulmonary hypertension -Lovenox 120 mg twice a day -2-D echocardiogram to evaluate for right heart strain and extent of pulmonary hypertension Elevated blood pressure -Patient reports history of hypertension in without preeclampsia -Monitor blood pressure with treatment of underlying pulmonary emboli -If persistently elevated and pulmonary pressures elevated, will initiate antihypertensive -Blood pressure monitoring every 4 hours Lupus anticoagulant syndrome -We'll need outpatient referral for discharge with hematology oncology -For determination of long-term care and prevention of possible future occurrences Morbid obesity -Complicating care Plan / VTE VTE Prophylaxis Ordered?: Yes Attending Note I performed a history and physical examination of the patient and discussed the management with the nurse practitioner. I reviewed the nurse practitioner's note and agree with documented findings and plan of care. OTUERNIE LEES Mar 28, 2019 19:55 JUANCARLOS DAMON MD Mar 29, 2019 06:32
[2019-03-28 20:22] LABS: BASO % 0.3 % (0.0-1.0); EOS # 0.3 10^3/uL (0.0-0.50); EOS % 1.7 % (0.0-3.0); HEMATOCRIT 41.3 % (36.0-47.0); HEMOGLOBIN 13.2 g/dl (12.0-15.5); LYMPH # 1.8 10^3/uL (1.5-6.5); MEAN CORPUSCULAR HEMOGLOBIN 25.9 pg (27.0-33.0); MONO # 0.8 10^3/uL (0.0-0.8); MONO % 5.2 % (0.0-5.0); NEUTROPHILS # 11.8 10^3/uL (1.8-7.7); NEUTROPHILS % 80.2 % (36.0-66.0); PLATELET COUNT, AUTOMATED 397 10^3/uL (150-450); WHITE BLOOD COUNT 14.7 10^3/uL (4.0-10.0)
--- NOTE | 2019-03-28 20:44 | REPVR ---
EXAM: US Duplex Bilateral Lower Extremity Veins EXAM DATE/TIME: 03/28/2019 8:31 PM CLINICAL HISTORY: 24 years old, female; Other: CT multiple pe's; Additional info: Multiple pes TECHNIQUE: Imaging protocol: Real-time duplex ultrasound of the Bilateral Lower Extremities with 2-D wheatley scale, color Doppler flow and spectral waveform analysis. Complete exam focused on the bilateral lower extremity veins. COMPARISON: US Duplex, Ext,LOWER veins,unilat 10/13/2018 2:22 PM FINDINGS: Right deep veins: Unremarkable. The common femoral, femoral, proximal profunda femoral and popliteal veins are patent without thrombus. Normal Doppler waveforms. Normal compressibility and/or augmentation response. Right superficial veins: Saphenofemoral junction is patent without thrombus. Left deep veins: Unremarkable. The common femoral, femoral, proximal profunda femoral and popliteal veins are patent without thrombus. Normal Doppler waveforms. Normal compressibility and/or augmentation response. Left superficial veins: Saphenofemoral junction is patent without thrombus. Soft tissues: Unremarkable. IMPRESSION: No acute findings. No evidence of deep vein thrombosis. Electronically signed by: Jose Henriquez On 03/28/2019 20:44:13 PM
--- NOTE | 2019-03-28 20:58 | ECGEPIP ---
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
[2019-03-29 00:04] VITALS: BP 139/87
[2019-03-29] MEDS: ACETAMINOPHEN TAB 650MG DOSE (2X325MG) PO PRN ×4 (00:46→14:49)
[2019-03-29 04:00] VITALS: BP 138/72
[2019-03-29] MEDS: PERCOCET 5MG/325MG TAB PO PRN ×3 (05:41→19:41)
[2019-03-29 07:41] LABS: HEMATOCRIT 40.1 % (36.0-47.0); HEMOGLOBIN 13.1 g/dl (12.0-15.5); MEAN CORPUSCULAR HEMOGLOBIN 26.6 pg (27.0-33.0); MEAN CORPUSCULAR HGB CONC 32.7 g/dl (32.0-36.5); MEAN CORPUSCULAR VOLUME 81.3 fl (80.0-96.0); PLATELET COUNT, AUTOMATED 323 10^3/uL (150-450); RED BLOOD COUNT 4.93 10^6/uL (4.00-5.40); WHITE BLOOD COUNT 12.2 10^3/uL (4.0-10.0)
[2019-03-29 08:13] LABS: ALBUMIN 2.9 GM/DL (3.2-5.2); ALT/SGPT 21 U/L (12-78); BILIRUBIN,TOTAL 0.5 MG/DL (0.2-1.0); BLOOD UREA NITROGEN 8 MG/DL (7-18); CARBON DIOXIDE LEVEL 26 MEQ/L (21-32); CHLORIDE LEVEL 107 MEQ/L (98-107); GLOMERULAR FILTRATION RATE > 60.0 (>60); GLUCOSE, FASTING 103 MG/DL (70-100); POTASSIUM SERUM 3.9 MEQ/L (3.5-5.1); SODIUM LEVEL 140 MEQ/L (136-145); TOTAL PROTEIN 6.7 GM/DL (6.4-8.2)
[2019-03-29 08:40] VITALS: BP 131/75
[2019-03-29] MEDS ORDERED: ENOXAPARIN 120 MG/0.8 ML SYR (J1650) SC SCH (09:00)
--- NOTE | 2019-03-29 09:11 | CR.PDOC ---
General Date of Consultation: Mar 29, [address] Ayers HPI: Patient is a 24-year-old female, presenting to the emergency room with chest pain and shortness of breath of sudden onset 03/28/19, she described CP as a sharp pain to her left sternum with radiation to back, bilateral shoulder blades. She was found to be tachycardic and tachypneic in the ED. CTA indicated moderate to large pulmonary emboli, right and left lower lobe pulmonary artery with moderate emboli extending to Infrahilar pulmonary arteries to lung bases. Of note, the pt is 3 weeks and was on 40 mg Lovenox twice a day during /post and this was continued up to her admission. Vascular surgery is consulted re PE. This AM she states she still has some left sided chest tenderness but overall CP is improved, breathing is better, no radiating pain. Sitting on side of bed and feels comfortable. Denies any fevers, chills, weakness, fatigue, Headache, cough, palpitations, abdominal pain, N/V/D or changes in bowel or bladder habits. PMHx: H/O hypertension complicating , on clonidine in past. lupus anticoagulant positive, seen by Hematology in past pulmonary hypertension, H/O PE/DVT post 2011. On Lovenox, transitioned to Coumadin, AC discontinued 2013 per pt. H/O chronic DVT LLE. Previously followed as per Dr Olivia Kay. obesity. BMI 39.8. PSHX: tonsillectomy,adenoidectomy. tympanostomy tubes SOCHX: Tobacco use: denies ETOH: occasional Illicit Drugs: Denies FAMHX: denies FH of blood clotting disorders. ROS: As noted in HPI, otherwise 11pt ROS of systems reviewed and unremarkable, pt states she is not . PE: GEN: 24yoF, appears stated age. Well-nourished, well developed. No acute distress. Alert and oriented x 3. Pleasant, interactive. HEENT: Normocephalic, atraumatic. Sclera are nonicteric. Conjunctiva without injection. Nose midline. No facial asymmetry. Moist mucous membranes. CHEST: Regular rate and rhythm, +S1, +S2 LUNGS: Clear to auscultation bilaterally. No wheezes, rales, or rhonchi. Breathing appears symmetric and easy. Patient is speaking in full sentences. No accessory muscle use. ABD: Round, soft, non-tender, non-distended. +Bowel sounds throughout. No rebound or guarding. EXT: Pulses 2+ bilaterally dorsalis pedis and radial. No lower extremity edema appreciated. SKIN: [place], dry, warm. Capillary refill <2sec. No rashes. NEURO: Alert and oriented x 3. Cranial nerves III-XII are intact. No focal deficits appreciated. CTA Chest IMPRESSION: 1. Moderate to large pulmonary emboli right and left lower lobe pulmonary artery with moderate emboli extending into the infrahilar pulmonary arteries to the lung bases. 2. 4 cm area atelectasis and infiltrate left lung base probably related to the pulmonary embolus. Electronically signed by: Jose Everett On 03/28/2019 19:00:04 PM DD: JOSE EVERETT MD 03/28/19 1753 LE US IMPRESSION: No acute findings. No evidence of deep vein thrombosis. Electronically signed by: Jose Everett On 03/28/2019 20:44:13 PM EKG SINUS TACHYCARDIA Nonspecific T wave abnormality Comparison tracing not on file Electronically Signed on 03-28-2019 20:58:13 EDT by Joby Ramirez DD: JOBY RAMIREZ MD 03/28/19 1910 A&P: Bilateral PE PCU/TM. VSS. HR83, RR18, Sat 97RA. Lovenox 120mg SC Q12. TTE pending. The pt has been reviewed and examined as per Dr Ayers, he has discussed risks/benefits of thrombolysis with the pt. Await TTE results. H/O DVT/PE. On Lovenox prior to admission. H/O LA positive. Thank you for your consultation. We will continue to follow along with you. Vital Signs/I&O Vital Signs Date Time Temp Pulse Resp B/P (MAP) Pulse Ox O2 Delivery O2 Flow Rate FiO2 03/29/19 06:11 18 03/29/19 04:00 97.7 83 138/72 (94) 97 03/28/19 18:10 Room Air I&O- Last 24 Hours up to 6 AM 03/29/19 06:00 Intake Total 0 ml Output Total 400 ml Balance -400 ml Laboratory Data Labs 24H Laboratory Tests 2 03/28/19 17:53: Immature Granulocyte % (Auto) 0.6, White Blood Count 14.7H, Red Blood Count 5.10, Hemoglobin 13.2, Hematocrit 41.3, Mean Corpuscular Volume 81.0, Mean Corpuscular Hemoglobin 25.9L, Mean Corpuscular Hemoglobin Concent 32.0, Red Cell Distribution Width 13.6, Platelet Count 397, Neutrophils (%) (Auto) 80.2H, Lymphocytes (%) (Auto) 12.0L, Monocytes (%) (Auto) 5.2H, Eosinophils (%) (Auto) 1.7, Basophils (%) (Auto) 0.3, Neutrophils # (Auto) 11.8H, Lymphocytes # (Auto) 1.8, Monocytes # (Auto) 0.8, Eosinophils # (Auto) 0.3, Basophils # (Auto) 0.0, Nucleated Red Blood Cells % (auto) 0.0, Anion Gap 8, Glomerular Filtration Rate > 60.0, Blood Urea Nitrogen 9, Creatinine 0.99, Sodium Level 142, Potassium Level 4.4, Chloride Level 107, Carbon Dioxide Level 27, Calcium Level 9.3 03/28/19 18:00: Prothrombin Time 13.5, Prothromb Time International Ratio 1.06, Activated Partial Thromboplast Time 29.9 03/29/19 07:30: Nucleated Red Blood Cells % (auto) 0.0 CBC/BMP Laboratory Tests 03/28/19 17:53 Red Blood Count 5.10, Mean Corpuscular Volume 81.0, Mean Corpuscular Hemoglobin 25.9 L, Mean Corpuscular Hemoglobin Concent 32.0, Red Cell Distribution Width 13.6, Neutrophils (%) (Auto) 80.2 H, Lymphocytes (%) (Auto) 12.0 L, Monocytes (%) (Auto) 5.2 H, Eosinophils (%) (Auto) 1.7, Basophils (%) (Auto) 0.3, Neutrophils # (Auto) 11.8 H, Lymphocytes # (Auto) 1.8, Monocytes # (Auto) 0.8, Eosinophils # (Auto) 0.3, Basophils # (Auto) 0.0, Calcium Level 9.3 03/29/19 07:30 Red Blood Count 4.93, Mean Corpuscular Volume 81.3, Mean Corpuscular Hemoglobin 26.6 L, Mean Corpuscular Hemoglobin Concent 32.7, Red Cell Distribution Width 13.6 Allergies Coded Allergies: bee venom protein (honey bee) (Verified Allergy, Severe, throat swelling, 02/28/19) Cephalosporins (Verified Allergy, Intermediate, HIVES, 01/24/19) budesonide (Verified Allergy, Intermediate, HIVES, 02/28/19) as a child Home Medications Scheduled Enoxaparin Sodium (Enoxaparin Sodium) 40 Mg/0.4 Ml Syringe, 40 MG SC BID, (Reported) Scheduled PRN Ibuprofen (Ibuprofen) 200 Mg Capsule, 600 MG PO BID PRN for PAIN, (Reported) Roxanne Boudreaux Mar 29, 2019 08:20
[2019-03-29 12:48] VITALS: BP 139/67
--- NOTE | 2019-03-29 14:51 | IPNPDOC ---
Subjective Date Seen The patient was seen on 03/29/19. Subjective Chief Complaint/HPI Saloni is a 24-year-old female with a past pertinent medical history of iliac vein DVT and bilateral pulmonary emboli in 2011 "a few weeks" following the of her first child, pulmonary hypertension, hypertension in without preeclampsia, and positive lupus anticoagulant, who presented to the ED yesterday afternoon (03/28) with the chief complaints of dyspnea and left flank pain. She said the pain was most intense during inspiration. Her pain began at 1:30pm yesterday and was located along her sternum, but by 2:30/3:00 PM it had moved to her left shoulder blade and left flank. Also during that time period, her dyspnea worsened.. She was prophylactically placed on Lovenox 40 mg subcutaneously twice a day once it was known that she was . In the emergency department, a chest CT, chest x-ray, duplex lower extremity ultrasound, BMP, CBC with differential, PT and PTT, continuous cardiac and pulse oximetry monitoring, and 48 hour telemetry were all ordered. The patient was given a one time dose of Lovenox 120 mg subcutaneously. After admission to the hospital service, an echocardiogram, vascular consultation, and CMP were ordered. The CTA of the chest showed moderate to large pulmonary emboli in both the right and left pulmonary artery with moderate emboli extending to infrahilar pulmonary arteries to lung bases. In addition, a 2.4 cm area of atelectasis and infiltrate left lung base, probably related to her pulmonary emboli, was visualized. Her duplex lower extremity ultrasound had no acute finding and no evidence of DVT. Her initial white blood cell count was elevated at 14.7 and a repeat was 12.2. Saloni was seen and examined this morning while lying upright in bed. She states that she is feeling better today, with less pain than yesterday. Her dyspnea is significantly improved from yesterday. She is able to talk in longer sentences and no longer has chest pain. She complains of a current dull, left rib ache and pressure. She states the pain medication she is taking has helped with this left rib ache and pressure, yet still deep breathing is uncomfortable. She has been able to eat and drink this morning without any issues. She denies having any history of miscarriages or family history of thrombosis or bleeding disorders. Her mother has a history of SVT. When she gave 7 years ago and developed DVT with bilateral PE, she was placed on heparin while in the hospital, then progressed to accommodation of Lovenox/Coumadin and remained on Coumadin only for an additional one and a half years. After 1-1/2 years. Her DVTs remained unchanged, therefore, her anticoagulation medication was stopped. During her first anticoagulation period, her care was overseen by Dr. Frederick avascular surgeon at [facility]. General: Denies: Chills Constitutional: Denies: Fever ENT: Denies: Head Aches Pulmonary: Reports: Pleuritic Chest Pain (Left flank/rib ache and pressure, more pronounced with inspiration); Denies: Dyspnea (resolved from yesterday), Cough Cardiovascular: Denies: Chest Pain, Palpitations Gastrointestinal: Denies: Nausea, Vomiting, Abdominal Pain, Diarrhea, Constipation Genitourinary: Denies: Dysuria Musculoskeletal: Denies: Leg Pain Neurological: Denies: Weakness, Numbness Objective Physical Examination General Exam: Positive: Alert, Cooperative, No Acute Distress ENT Exam: Positive: Atraumatic, Mucous membr. moist/pink Neck Exam: Positive: Supple Chest Exam: Positive: Diminished (mildly diminished on inspiration due to associated left flank pain); Negative: Clear to auscultation, Rales, Rhonchi, Wheezing Heart Exam: Positive: Regular Rhythm, Normal S1, Normal S2; Negative: Rubs Abdomen Exam: Positive: Normal bowel sounds, Soft; Negative: Tenderness, Mass, Other (, nondistended) Extremity Exam: Positive: Swelling ( minimal, bilateral lower extremities); Negative: Tenderness (nontender, bilateral lower extremities) Skin Exam: Negative: Rash, Breakdown Neuro Exam: Positive: Strength at 5/5 X4 ext, Sensation Intact (to light touch upper extremity and lower show any bilaterally) Psych Exam: Positive: Mental status NL, Mood NL, Oriented x 3 Assessment /Plan Assessment 1. Bilateral pulmonary emboli Patient was also seen and evaluated by vascular surgery (Dr. Ayers). Dr. Ayers. Advised the patient that intra clot lysis is recommended to get rid of as much of her current clot as possible and to prevent worsening pulmonary hypertension. Patient will decide if she will pursue thrombolysis if so, she will be switched from Lovenox to heparin drip. Currently, patient is anticoagulated on full therapeutic Lovenox dose of 120 mg. -Ultrasound bilateral lower extremity to evaluate clot burden showed no evidence of DVT and no acute finding -Occurring in the period, 3 weeks after delivery (03/03/2019) while on prophylactic dose Lovenox 40 mg subcutaneous bid through -Recurrent, prior episode 7 years ago with first and delivery will continue on lovenox 120 mg bid . if patient decides to go forward with intra clot thrombolysis then will be started on heparin insusion and alteplase infusion as per Dr Ayers's direction. 2. Elevated blood pressure -Patient reports history of hypertension in without preeclampsia -Monitor blood pressure with treatment of underlying pulmonary emboli -If persistently elevated and pulmonary pressures elevated, will initiate antihypertensive -Blood pressure monitoring every 4 hours 3. Lupus anticoagulant syndrome -A hypercoagulable workup was ordered today. (03/29) -We'll need outpatient referral for discharge with hematology oncology for determination of long-term care and prevention of possible future occurrences 4. Morbid obesity -Complicating care Plan/VTE VTE Prophylaxis Ordered?: Yes VS, I&O, 24H, [facility] Vital Signs/I&O Vital Signs Date Time Temp Pulse Resp B/P (MAP) Pulse Ox O2 Delivery O2 Flow Rate FiO2 03/29/19 13:01 18 03/29/19 12:48 98.1 88 139/67 (91) 97 03/28/19 18:10 Room Air I&O- Last 24 Hours up to 6 AM 03/29/19 06:00 Intake Total 0 ml Output Total 400 ml Balance -400 ml Laboratory Data 24H LABS Laboratory Tests 2 03/28/19 17:53: Immature Granulocyte % (Auto) 0.6, White Blood Count 14.7H, Red Blood Count 5.10, Hemoglobin 13.2, Hematocrit 41.3, Mean Corpuscular Volume 81.0, Mean Corpuscular Hemoglobin 25.9L, Mean Corpuscular Hemoglobin Concent 32.0, Red Cell Distribution Width 13.6, Platelet Count 397, Neutrophils (%) (Auto) 80.2H, Lymphocytes (%) (Auto) 12.0L, Monocytes (%) (Auto) 5.2H, Eosinophils (%) (Auto) 1.7, Basophils (%) (Auto) 0.3, Neutrophils # (Auto) 11.8H, Lymphocytes # (Auto) 1.8, Monocytes # (Auto) 0.8, Eosinophils # (Auto) 0.3, Basophils # (Auto) 0.0, Nucleated Red Blood Cells % (auto) 0.0, Anion Gap 8, Glomerular Filtration Rate > 60.0, Blood Urea Nitrogen 9, Creatinine 0.99, Sodium Level 142, Potassium Level 4.4, Chloride Level 107, Carbon Dioxide Level 27, Calcium Level 9.3 03/28/19 18:00: Prothrombin Time 13.5, Prothromb Time International Ratio 1.06, Activated [place]ia l Thromboplast Time 29.9 03/29/19 07:30: Nucleated Red Blood Cells % (auto) 0.0, Anion Gap 7L, Glomerular Filtration Rate > 60.0, Blood Urea Nitrogen 8, Creatinine 0.70, Sodium Level 140, Potassium Level 3.9, Chloride Level 107, Carbon Dioxide Level 26, Calcium Level 9.0, Aspartate Amino Transf (AST/SGOT) 10, Alanine Aminotransferase (ALT/SGPT) 21, Alkaline Phosphatase 152H, Total Bilirubin 0.5, Total Protein 6.7, Albumin 2.9L, Albumin/Globulin Ratio 0.76L CBC/BMP Laboratory Tests 03/28/19 17:53 Red Blood Count 5.10, Mean Corpuscular Volume 81.0, Mean Corpuscular Hemoglobin 25.9 L, Mean Corpuscular Hemoglobin Concent 32.0, Red Cell Distribution Width 13.6, Neutrophils (%) (Auto) 80.2 H, Lymphocytes (%) (Auto) 12.0 L, Monocytes (%) (Auto) 5.2 H, Eosinophils (%) (Auto) 1.7, Basophils (%) (Auto) 0.3, Neutrophils # (Auto) 11.8 H, Lymphocytes # (Auto) 1.8, Monocytes # (Auto) 0.8, Eosinophils # (Auto) 0.3, Basophils # (Auto) 0.0, Calcium Level 9.3 03/29/19 07:30 Red Blood Count 4.93, Mean Corpuscular Volume 81.3, Mean Corpuscular Hemoglobin 26.6 L, Mean Corpuscular Hemoglobin Concent 32.7, Red Cell Distribution Width 13.6, Calcium Level 9.0, Aspartate Amino Transf (AST/SGOT) 10, Alanine Aminotransferase (ALT/SGPT) 21, Alkaline Phosphatase 152 H, Total Bilirubin 0.5, Total Protein 6.7, Albumin 2.9 L Attending Note Attending Note I have personally seen and examined the patient this am. I agree with the finding and the plan of care as documented above resident's/ medical student's n braden. NOLA MCCARTHY PGY-1 Mar 29, 2019 14:51 LUZMARIA BALDERAS MD Mar 29, 2019 19:59
[2019-03-29] MEDS ORDERED: LIDOCAINE 2% MDV 20 ML VIAL As Ordered ONE (16:03)
[2019-03-29] MEDS ORDERED: MIDAZOLAM INJ 2 MG/2 ML VIAL (J2250) As Ordered ONE (16:03)
[2019-03-29] MEDS ORDERED: fentaNYL 100 MCG/2 ML INJECTION (J3010) As Ordered ONE (16:03)
[2019-03-29] MEDS ORDERED: BUPIVACAINE HCL 0.5% 10 ML VIAL As Ordered ONE (16:04)
[2019-03-29] MEDS ORDERED: ISOVUE-300 61% 50ML VIAL (Q9967) As Ordered ONE (16:04)
[2019-03-29] MEDS ORDERED: MORPHINE 4 MG/ML 1ML VIAL/SYRINGE (J2270) IV ONE (16:15)
[2019-03-29] MEDS ORDERED: ALTEPLASE RECOMBINANT 10 MG in NS 90 ML IV SCH (17:00)
[2019-03-29 18:26] VITALS: BP 147/79
[2019-03-29 20:00] VITALS: BP 148/70
[2019-03-29] MEDS: HEPARIN DRIP 25,000 UNITS in IV 1 EA IV SCH (21:14)
--- NOTE | 2019-03-29 23:06 | ECHO ---
DATE OF PROCEDURE: 03/29/2019 DATE OF : 1995 AGE: 24 REFERRING PROVIDER: Dr. Foreign Duran PATIENT LOCATION: Room 3226 REASON FOR THE ECHOCARDIOGRAM: Shortness of breath. 2D MEASUREMENTS: IVS: 1.1 cm LV: 4.8 cm LVPW: 0.9 cm LA: 3.1 cm Aorta: 2.3 cm IVC: 1.8 cm DOPPLER MEASUREMENTS: Peak velocity across the aortic valve: 1.7 m/s Peak velocity across the LVOT: 1.4 m/s Peak gradient across the aortic valve: 12 mmHg Mean gradient across the aortic valve: 6 mmHg Mitral E: 0.8, Mitral A: 0.6 with a ratio of 1.3 Maximum tricuspid valve velocity: 2.3 m/s 2D COMMENTS: 1. Normal left ventricular size, wall thickness, and normal global left ventricular systolic function. The estimated left ventricular systolic ejection fraction is 60-65%. 2. Normal left atrium. Normal right atrium and right ventricle. 3. The atrial septum appeared to be normal without evidence of defect or shunt. 4. Normal aortic root. 5. No pericardial effusion. 6. Minimally calcified aortic valve with normal leaflet excursion. Mildly calcified mitral annulus with normal anterior mitral valve leaflet motion. Normal tricuspid valve and pulmonic valve. The proximal pulmonary artery branches were not well visualized. 7. The inferior vena cava was normal in size, central venous pressure is most likely normal. DOPPLER: It detects mild tricuspid regurgitation and trace pulmonic regurgitation. The calculated pulmonary artery systolic pressure is about 30 mmHg. Assessment of the left ventricular diastolic function appeared to be normal. IMPRESSION: 1. Normal global left ventricular systolic and diastolic function. 2. Aortic valve sclerosis. No significant aortic regular or aortic stenosis noted. 3. Isolated mitral annulus calcification. 4. Mild tricuspid regurgitation with probably mild pulmonary hypertension. 5. Trace pulmonic regurgitation. MTDD
[2019-03-30] VITALS (9 sets, daily range): BP systolic 124–153; BP diastolic 58–77
[2019-03-30 00:25] LABS: PARTIAL THROMBOPLASTIN TIME 35.2 SECONDS (25.0-38.4)
[2019-03-30 00:32] LABS: HEMATOCRIT 38.9 % (36.0-47.0); HEMOGLOBIN 12.7 g/dl (12.0-15.5)
[2019-03-30] MEDS: PERCOCET 5MG/325MG TAB PO PRN ×4 (01:20→19:00)
[2019-03-30] MEDS ORDERED: MORPHINE 4 MG/ML 1ML VIAL/SYRINGE (J2270) IV ONE (02:41)
[2019-03-30] MEDS: SODIUM CHLORIDE 0.9% INJ 10 ML SYR IV SCH ×2 (05:54→18:59)
[2019-03-30 06:29] LABS: BASO % 0.3 % (0.0-1.0); EOS # 0.1 10^3/uL (0.0-0.50); EOS % 0.5 % (0.0-3.0); HEMATOCRIT 40.2 % (36.0-47.0); HEMOGLOBIN 12.4 g/dl (12.0-15.5); HEMOGLOBIN 12.8 g/dl (12.0-15.5); LYMPH # 1.5 10^3/uL (1.5-6.5); LYMPH % 9.9 % (24.0-44.0); MEAN CORPUSCULAR HEMOGLOBIN 25.9 pg (27.0-33.0); MEAN CORPUSCULAR HEMOGLOBIN 26.6 pg (27.0-33.0); MEAN CORPUSCULAR HGB CONC 31.8 g/dl (32.0-36.5); MEAN CORPUSCULAR VOLUME 81.4 fl (80.0-96.0); MEAN CORPUSCULAR VOLUME 83.4 fl (80.0-96.0); MONO # 1.1 10^3/uL (0.0-0.8); NEUTROPHILS # 12.2 10^3/uL (1.8-7.7); NEUTROPHILS % 81.8 % (36.0-66.0); PLATELET COUNT, AUTOMATED 292 10^3/uL (150-450); PLATELET COUNT, AUTOMATED 307 10^3/uL (150-450); RED BLOOD COUNT 4.79 10^6/uL (4.00-5.40); RED BLOOD COUNT 4.82 10^6/uL (4.00-5.40); WHITE BLOOD COUNT 14.9 10^3/uL (4.0-10.0); WHITE BLOOD COUNT 15.2 10^3/uL (4.0-10.0)
[2019-03-30 06:42] LABS: INR 1.16; PARTIAL THROMBOPLASTIN TIME 30.1 SECONDS (25.0-38.4); PROTHROMBIN TIME 14.5 SECONDS (11.8-14.0)
[2019-03-30 06:55] LABS: BLOOD UREA NITROGEN 8 MG/DL (7-18); CALCIUM LEVEL 8.6 MG/DL (8.5-10.1); CARBON DIOXIDE LEVEL 30 MEQ/L (21-32); CHLORIDE LEVEL 106 MEQ/L (98-107); CREATININE FOR GFR 0.86 MG/DL (0.55-1.30); GLOMERULAR FILTRATION RATE > 60.0 (>60); GLUCOSE, FASTING 97 MG/DL (70-100); POTASSIUM SERUM 4.3 MEQ/L (3.5-5.1); SODIUM LEVEL 141 MEQ/L (136-145)
[2019-03-30 06:58] LABS: ERYTHROCYTE SEDIMENTATION RATE 59 mm/hr (0-20)
--- NOTE | 2019-03-30 08:05 | IPNPDOC ---
Subjective Date Seen The patient was seen on 03/30/19. Subjective Chief Complaint/HPI Saloni was seen and examined this morning while sitting upright in her ICU bed. She underwent a thrombolysis procedure yesterday afternoon (03/29) performed by Dr. Ayers. She states that a little bit before and a little bit after the thrombolysis, her breathing become a little bit more uncomfortable, specifically left-sided flank pain with inhalation. She currently has a PICC line in for which both heparin and alteplase are running. She says that around 9 PM last night, her anticoagulation was switched from Lovenox to heparin drip. Around 1 :30 this morning, she had intense left-sided muscle spasm for which a Percocet and morphine shot were able to help. She still feels some left-sided flank discomfort with deep inhalation, cough or laughing. She is eating and drinking with no issues. She is ambulating to and from the bathroom under her own power. General: Denies: Chills Constitutional: Reports: Other (feeling lightheaded; felt diaphoretic when she woke up this morning around 8 AM); Denies: Fever ENT: Denies: Head Aches, Dysphagia Pulmonary: Reports: Pleuritic Chest Pain (pain with deep inspiration, cough, laugh); Denies: Dyspnea Cardiovascular: Reports: Palpitations (none currently, but experienced some last night); Denies: Chest Pain Gastrointestinal: Denies: Nausea, Vomiting Genitourinary: Denies: Dysuria Neurological: Denies: Weakness, Numbness Objective Physical Examination General Exam: Positive: Alert, Cooperative, Mild Distress (associated with discomfort on inspiration) ENT Exam: Positive: Atraumatic, Mucous membr. moist/pink Neck Exam: Positive: Supple Chest Exam: Positive: Diminished (mildly diminished on inspiration due to associated left flank pain); Negative: Rales, Rhonchi, Wheezing Heart Exam: Positive: Regular Rhythm, Normal S1, Normal S2; Negative: Rubs Abdomen Exam: Positive: Normal bowel sounds, Soft; Negative: Tenderness, Mass, Other (nondistended) Extremity Exam: Positive: Swelling ( minimal, bilateral lower extremities); Negative: Tenderness (nontender, bilateral lower extremities) Skin Exam: Negative: Rash, Breakdown Neuro Exam: Positive: Strength at 5/5 X4 ext, Sensation Intact (to light touch upper extremity and lower show any bilaterally) Psych Exam: Positive: Mental status NL, Mood NL, Oriented x 3 Assessment /Plan Assessment 1. Bilateral pulmonary emboli -Patient underwent thrombolysis procedure yesterday afternoon (03/29) performed by Dr. Ayers. Patient was transferred to the ICU, a PICC line was inserted and both alteplase and heparin are now running through it. After the thrombolysis, patient was switched from oral Lovenox to the heparin via PICC. Fibrinogen levels will be checked every 6 hours. We will continue to collaborate with Dr. Ayers on the next steps for patient. -Homocystine, antibody screen, factor II mutation and hypercoagulability panel are all pending at this time -Ultrasound bilateral lower extremity to evaluate clot burden showed no evidence of DVT and no acute finding -Occurring in the period, 3 weeks after delivery (03/03/2019) while on prophylactic dose Lovenox 40 mg subcutaneous bid through -Recurrent, prior episode 7 years ago with first and delivery 2. Elevated blood pressure -Patient reports history of hypertension in without preeclampsia -Monitor blood pressure with treatment of underlying pulmonary emboli -If persistently elevated and pulmonary pressures elevated, will initiate antihypertensive -Blood pressure monitoring every 4 hours 3. Lupus anticoagulant syndrome -A hypercoagulable workup was ordered yesterday (03/29) -We'll need outpatient referral for discharge with hematology oncology for determination of long-term care and prevention of possible future occurrences 4. Morbid obesity -Complicating care Plan/VTE VTE Prophylaxis Ordered?: Yes VS, I&O, 24H, Fishbone Vital Signs/I&O Vital Signs Date Time Temp Pulse Resp B/P (MAP) Pulse Ox O2 Delivery O2 Flow Rate FiO2 03/30/19 04:00 98.6 89 24 124/58 (80) 96 2.0 03/28/19 18:10 Room Air I&O- Last 24 Hours up to 6 AM 03/30/19 06:00 Intake Total 170 ml Output Total 600 ml Balance -430 ml Laboratory Data 24H LABS Laboratory Tests 2 03/29/19 20:03: Activated Partial Thromboplast Time 48.7H 03/30/19 00:05: Activated Partial Thromboplast Time 35.2, Fibrinogen 751H 03/30/19 06:10: Activated Partial Thromboplast Time 30.1, Fibrinogen 773H, Immature Granulocyte % (Auto) 0.5, White Blood Count 14.9H, Red Blood Count 4.82, Hemoglobin 12.8, Hematocrit 40.2, Mean Corpuscular Volume 83.4, Mean Corpuscular Hemoglobin 2 6.6L, Mean Corpuscular Hemoglobin Concent 31.8L, Red Cell Distribution Width 13.4, Platelet Count 292, Neutrophils (%) (Auto) 81.8H, Lymphocytes (%) (Auto) 9.9L, Monocytes (%) (Auto) 7.0H, Eosinophils (%) (Auto) 0.5, Basophils (%) (Auto) 0.3, Neutrophils # (Auto) 12.2H, Lymphocytes # (Auto) 1.5, Monocytes # (Auto) 1.1H, Eosinophils # (Auto) 0.1, Basophils # (Auto) 0.0, Nucleated Red Blood Cells % (auto) 0.0, Erythrocyte Sedimentation Rate 59H, Prothrombin Time 14.5H, Prothromb Time International Ratio 1.16, Anion Gap 5L, Glomerular Filtration Rate > 60.0, Blood Urea Nitrogen 8, Creatinine 0.86, Sodium Level 141, Potassium Level 4.3, Chloride Level 106, Carbon Dioxide Level 30, Calcium Level 8.6, C-Reactive Protein, Quantitative 12.50H 03/30/19 06:12: CBC/BMP Laboratory Tests 03/30/19 00:05 03/30/19 06:10 Red Blood Count 4.82, Mean Corpuscular Volume 83.4, Mean Corpuscular Hemoglobin 26.6 L, Mean Corpuscular Hemoglobin Concent 31.8 L, Red Cell Distribution Width 13.4, Neutrophils (%) (Auto) 81.8 H, Lymphocytes (%) (Auto) 9.9 L, Monocytes (%) (Auto) 7.0 H, Eosinophils (%) (Auto) 0.5, Basophils (%) (Auto) 0.3, Neutrophils # (Auto) 12.2 H, Lymphocytes # (Auto) 1.5, Monocytes # (Auto) 1.1 H, Eosinophils # (Auto) 0.1, Basophils # (Auto) 0.0, Calcium Level 8.6 Attending Note Attending Note I have personally seen and examined the patient this am. I agree with the finding and the plan of care as documented above resident's/ medical student's note with the following addendum/ amendment; Massive bilateral pulmonary embolism with large clot burden I suspect part of what is seen CT angio is chronic remnant from her previous PE 7 years back. As her symptoms are much less severe than what i would except her to have in case o f this sized only acute embolism. Patient noted was hypoxic during sleep requiring 2 l of oxygen . Hypoxia absent when awake. Will continue to monitor . this could be due to the PE with an underlying component of GRANT. if continues to have persistent hypoxia only during sleep will get a nocturnal oximetry of the night prior to discharge to see if she will need to tbe referred for a sleep study or not. Discussed with her diet and need to loose significant amount of weight. Remains of Intra clot thrombolysis i expect she will need 72 hours of treatment to be decided by Vascular. Once this is done will switch her over to lovenox and coumadin. repeat coagulation work up has been sent. NOLA MCCARTHY PGY-1 Mar 30, 2019 08:05 LUZMARIA BALDERAS MD Mar 30, 2019 13:37
--- NOTE | 2019-03-30 08:39 | IPNPDOC ---
Date Seen The patient was seen on 03/30/19. Progress Note Vascular Surgery Dr Ayers HPI: Patient is a 24-year-old female, presenting to the emergency room with chest pain and shortness of breath of sudden onset 03/28/19, she described CP as a sharp pain to her left sternum with radiation to back, bilateral shoulder blades. She was found to be tachycardic and tachypneic in the ED. CTA indicated moderate to large pulmonary emboli, right and left lower lobe pulmonary artery with moderate emboli extending to Infrahilar pulmonary arteries to lung bases. Of note, the pt is 3 weeks and was on 40 mg Lovenox twice a day during /post and this was continued up to her admission. Vascular surgery is consulted re PE. This AM she states she still has some left sided chest tenderness but overall CP is improved, breathing is comfortable, no radiating pain. Denies any fevers, chills, weakness, fatigue, Headache, cough, palpitations, abdominal pain, N/V/D or changes in bowel or bladder habits. PMHx: H/O hypertension complicating , on clonidine in past. lupus anticoagulant positive, seen by Hematology in past pulmonary hypertension, H/O PE/DVT post 2011. On Lovenox, transitioned to Coumadin, AC disc ontinued 2013 per pt. H/O chronic DVT LLE. Previously followed as per Dr Olivia Kay. obesity. BMI 39.8. PSHX: tonsillectomy,adenoidectomy. tympanostomy tubes SOCHX: Tobacco use: denies ETOH: occasional Illicit Drugs: Denies FAMHX: denies FH of blood clotting disorders. ROS: As noted in HPI, otherwise 11pt ROS of systems reviewed and unremarkable, pt states she is not . PE: GEN: 24yoF, appears stated age. Well-nourished, well developed. No acute distress. Alert and oriented x 3. Pleasant, interactive. HEENT: Normocephalic, atraumatic. Sclera are nonicteric. Conjunctiva without injection. Nose midline. No facial asymmetry. Moist mucous membranes. CHEST: Regular rate and rhythm, +S1, +S2 LUNGS: Clear to auscultation bilaterally. No wheezes, rales, or rhonchi. Breathing appears symmetric and easy. Patient is speaking in full sentences. No accessory muscle use. ABD: Round, soft, non-tender, non-distended. +Bowel sounds throughout. No kirsten ound or guarding. EXT: Pulses 2+ bilaterally dorsalis pedis and radial. No lower extremity edema appreciated. SKIN: [place], dry, warm. Capillary refill <2sec. No rashes. NEURO: Alert and oriented x 3. Cranial nerves III-XII are intact. No focal deficits appreciated. CTA Chest IMPRESSION: 1. Moderate to large pulmonary emboli right and left lower lobe pulmonary artery with moderate emboli extending into the infrahilar pulmonary arteries to the lung bases. 2. 4 cm area atelectasis and infiltrate left lung base probably related to the pulmonary embolus. Electronically signed by: Jose Everett On 03/28/2019 19:00:04 PM DD: JOSE EVERETT MD 03/28/19 1753 LE US IMPRESSION: No acute findings. No evidence of deep vein thrombosis. Electronically signed by: Jose Eveertt On 03/28/2019 20:44:13 PM EKG SINUS TACHYCARDIA Nonspecific T wave abnormality Comparison tracing not on file Electronically Signed on 03-28-2019 20:58:13 EDT by Joby Ramirez DD: JOBY RAMIREZ MD 03/28/19 1910 TTE 2D COMMENTS: 1. Normal left ventricular size, wall thickness, and normal global left ventricular systolic function. The estimated left ventricular systolic ejection fraction is 60-65%. 2. Normal left atrium. Normal right atrium and right ventricle. 3. The atrial septum appeared to be normal without evidence of defect or shunt. 4. Normal aortic root. 5. No pericardial effusion. 6. Minimally calcified aortic valve with normal leaflet excursion. Mildly calcified mitral annulus with normal anterior mitral valve leaflet motion. Normal tricuspid valve and pulmonic valve. The proximal pulmonary artery branches were not well visualized. 7. The inferior vena cava was normal in size, central venous pressure is most likely normal. DOPPLER: It detects mild tricuspid regurgitation and trace pulmonic regurgitation. The calculated pulmonary artery systolic pressure is about 30 mmHg. Assessment of the left ventricular diastolic function appeared to be normal. IMPRESSION: 1. Normal global left ventricular systolic and diastolic function. 2. Aortic valve sclerosis. No significant aortic regular or aortic stenosis noted. 3. Isolated mitral annulus calcification. 4. Mild tricuspid regurgitation with probably mild pulmonary hypertension. 5. Trace pulmonic regurgitation. DD: BEVERLEY OWENS MD 03/29/192112 A&P: Bilateral PE VSS, O2 sat 97% 2 LNC. TTE as above. Hypercoagulable rouse pending. Thrombolysis as per Dr Ayers. IV Alteplase/IV Heparin gtt. Fibrinogen 773. Monitor. H/O prior DVT/PE post . H/O LA positive. Hypercoagulable rouse pending. VS, I&O, 24H, Fishbone Vital Signs/I&O Vital Signs Date Time Temp Pulse Resp B/P (MAP) Pulse Ox O2 Delivery O2 Flow Rate FiO2 03/30/19 04:00 98.6 89 24 124/58 (80) 96 2.0 03/28/19 18:10 Room Air I&O- Last 24 Hours up to 6 AM 03/30/19 06:00 Intake Total 170 ml Output Total 600 ml Balance -430 ml Laboratory Data 24H LABS Laboratory Tests 2 03/29/19 20:03: Activated Partial Thromboplast Time 48.7H 03/30/19 00:05: Activated Partial Thromboplast Time 35.2, Fibrinogen 751H 03/30/19 06:10: Activated Partial Thromboplast Time 30.1, Fibrinogen 773H, Immature Granulocyte % (Auto) 0.5, White Blood Count 14.9H, Red Blood Count 4.82, Hemoglobin 12.8, Hematocrit 40.2, Mean Corpuscular Volume 83.4, Mean Corpuscular Hemoglobin 26.6L, Mean Corpuscular Hemoglobin Concent 31.8L, Red Cell Distribution Width 13 .4, Platelet Count 292, Neutrophils (%) (Auto) 81.8H, Lymphocytes (%) (Auto) 9.9L, Monocytes (%) (Auto) 7.0H, Eosinophils (%) (Auto) 0.5, Basophils (%) (Auto) 0.3, Neutrophils # (Auto) 12.2H, Lymphocytes # (Auto) 1.5, Monocytes # (Auto) 1.1H, Eosinophils # (Auto) 0.1, Basophils # (Auto) 0.0, Nucleated Red Blood Cells % (auto) 0.0, Erythrocyte Sedimentation Rate 59H, Prothrombin Time 14.5H, Prothromb Time International Ratio 1.16, Anion Gap 5L, Glomerular Filtration Rate > 60.0, Blood Urea Nitrogen 8, Creatinine 0.86, Sodium Level 141, Potassium Level 4.3, Chloride Level 106, Carbon Dioxide Level 30, Calcium Level 8.6, C-Reactive Protein, Quantitative 12.50H 03/30/19 06:12: CBC/BMP Laboratory Tests 03/30/19 00:05 03/30/19 06:10 Red Blood Count 4.82, Mean Corpuscular Volume 83.4, Mean Corpuscular Hemoglobin 26.6 L, Mean Corpuscular Hemoglobin Concent 31.8 L, Red Cell Distribution Width 13.4, Neutrophils (%) (Auto) 81.8 H, Lymphocytes (%) (Auto) 9.9 L, Monocytes (%) (Auto) 7.0 H, Eosinophils (%) (Auto) 0.5, Basophils (%) (Auto) 0.3, Neutrophils # (Auto) 12.2 H, Lymphocytes # (Auto) 1.5, Monocytes # (Auto) 1.1 H, Eosinophils # (Auto) 0.1, Basophils # (Auto) 0.0, Calcium Level 8.6 Roxanne Boudreaux Mar 30, 2019 08:39
[2019-03-30 12:45] LABS: HEMATOCRIT 40.1 % (36.0-47.0); HEMOGLOBIN 12.7 g/dl (12.0-15.5)
[2019-03-30 13:05] LABS: PARTIAL THROMBOPLASTIN TIME 40.4 SECONDS (25.0-38.4)
[2019-03-30] MEDS ORDERED: ALTEPLASE RECOMBINANT 25 MG in NS 225 ML IV SCH (14:00)
[2019-03-30 18:06] LABS: HEMATOCRIT 38.8 % (36.0-47.0); HEMOGLOBIN 12.4 g/dl (12.0-15.5)
[2019-03-30 18:15] LABS: PARTIAL THROMBOPLASTIN TIME 32.2 SECONDS (25.0-38.4)
[2019-03-30] MEDS: HEPARIN DRIP 25,000 UNITS in IV 1 EA IV SCH (21:19)
[2019-03-31] VITALS (13 sets, daily range): BP systolic 137–168; BP diastolic 62–82
[2019-03-31] MEDS: SODIUM CHLORIDE 0.9% INJ 10 ML SYR IV PRN
[2019-03-31 00:17] LABS: HEMATOCRIT 39.5 % (36.0-47.0); HEMOGLOBIN 12.6 g/dl (12.0-15.5)
[2019-03-31 00:48] LABS: PARTIAL THROMBOPLASTIN TIME 53.9 SECONDS (25.0-38.4)
[2019-03-31] MEDS: PERCOCET 5MG/325MG TAB PO PRN (01:28)
[2019-03-31] MEDS: ACETAMINOPHEN TAB 650MG DOSE (2X325MG) PO PRN ×2 (04:53→14:58)
[2019-03-31] MEDS: SODIUM CHLORIDE 0.9% INJ 10 ML SYR IV SCH ×2 (06:10→17:48)
[2019-03-31 06:29] LABS: HEMATOCRIT 39.6 % (36.0-47.0); HEMOGLOBIN 12.6 g/dl (12.0-15.5); MEAN CORPUSCULAR HEMOGLOBIN 26.6 pg (27.0-33.0); MEAN CORPUSCULAR HGB CONC 31.8 g/dl (32.0-36.5); MEAN CORPUSCULAR VOLUME 83.5 fl (80.0-96.0); PLATELET COUNT, AUTOMATED 236 10^3/uL (150-450); RED BLOOD COUNT 4.74 10^6/uL (4.00-5.40); WHITE BLOOD COUNT 10.3 10^3/uL (4.0-10.0)
[2019-03-31 06:42] LABS: PARTIAL THROMBOPLASTIN TIME 43.3 SECONDS (25.0-38.4)
[2019-03-31 06:59] LABS: BLOOD UREA NITROGEN 9 MG/DL (7-18); CALCIUM LEVEL 9.1 MG/DL (8.5-10.1); CARBON DIOXIDE LEVEL 30 MEQ/L (21-32); CHLORIDE LEVEL 105 MEQ/L (98-107); GLOMERULAR FILTRATION RATE > 60.0 (>60); GLUCOSE, FASTING 93 MG/DL (70-100); SODIUM LEVEL 140 MEQ/L (136-145)
--- NOTE | 2019-03-31 10:10 | IPNPDOC ---
Date Seen The patient was seen on 03/31/19. Progress Note Vascular Surgery Dr Ayers HPI: Patient is a 24-year-old female, presenting to the emergency room with chest pain and shortness of breath of sudden onset 03/28/19, she described CP as a sharp pain to her left sternum with radiation to back, bilateral shoulder blades. She was found to be tachycardic and tachypneic in the ED. CTA indicated moderate to large pulmonary emboli, right and left lower lobe pulmonary artery with moderate emboli extending to Infrahilar pulmonary arteries to lung bases. Of note, the pt is 3 weeks and was on 40 mg Lovenox twice a day during /post and this was continued up to her admission. Vascular surgery is consulted re PE. This AM she states overall CP is improved, breathing is better, no radiating pain. Denies any fevers, chills, weakness, fatigue, Headache, cough, palpitations, abdominal pain, N/V/D or changes in bowel or bladder habits. PMHx: H/O hypertension complicating , on clonidine in past. lupus anticoagulant positive, seen by Hematology in past pulmonary hypertension, H/O PE/DVT post 2011. On Lovenox, transitioned to Coumadin, AC discontinued 2013 per pt. H/O chronic DVT LLE. Previously followed as per Dr Olivia Kay. obesity. BMI 39.8. PSHX: tonsillectomy,adenoidectomy. tympanostomy tubes PE: GEN: 24yoF, appears stated age. Well-nourished, well developed. No acute distress. Alert and oriented x 3. Pleasant, interactive. HEENT: Normocephalic, atraumatic. Sclera are nonicteric. Conjunctiva without injection. Nose midline. No facial asymmetry. Moist mucous membranes. CHEST: Regular rate and rhythm, +S1, +S2 LUNGS: Clear to auscultation bilaterally. No wheezes, rales, or rhonchi. Breathing appears symmetric and easy. Patient is speaking in full sentences. No accessory muscle use. ABD: Round, soft, non-tender, non-distended. +Bowel sounds throughout. No rebound or guarding. EXT: Pulses 2+ bilaterally dorsalis pedis and radial. No lower extremity edema appreciated. SKIN: [place], dry, warm. Capillary refill <2sec. No rashes. NEURO: Alert and oriented x 3. Cranial nerves III-XII are intact. No focal deficits appreciated. CTA Chest IMPRESSION: 1. Moderate to large pulmonary emboli right and left lower lobe pulmonary artery with moderate emboli extending into the infrahilar pulmonary arteries to the lung bases. 2. 4 cm area atelectasis and infiltrate left lung base probably related to the pulmonary embolus. Electronically signed by: Jose Everett On 03/28/2019 19:00:04 PM DD: JOSE EVERETT MD 03/28/19 [id number] LE US IMPRESSION: No acute findings. No evidence of deep vein thrombosis. Electronically signed by: Jose Everett On 03/28/2019 20:44:13 PM EKG SINUS TACHYCARDIA Nonspecific T wave abnormality Comparison tracing not on file Electronically Signed on 03-28-2019 20:58:13 EDT by Joby Ramirez DD: JOBY RAMIREZ MD 03/28/19 1910 TTE 2D COMMENTS: 1. Normal left ventricular size, wall thickness, and normal global left ventricular systolic function. The estimated left ventricular systolic ejection fraction is 60-65%. 2. Normal left atrium. Normal right atrium and right ventricle. 3. The atrial septum appeared to be normal without evidence of defect or shunt. 4. Normal aortic root. 5. No pericardial effusion. 6. Minimally calcified aortic valve with normal leaflet excursion. Mildly calcified mitral annulus with normal anterior mitral valve leaflet motion. Normal tricuspid valve and pulmonic valve. The proximal pulmonary artery branches were not well visualized. 7. The inferior vena cava was normal in size, central venous pressure is most likely normal. DOPPLER: It detects mild tricuspid regurgitation and trace pulmonic regurgitation. The calculated pulmonary artery systolic pressure is about 30 mmHg. Assessment of the left ventricular diastolic function appeared to be normal. IMPRESSION: 1. Normal global left ventricular systolic and diastolic function. 2. Aortic valve sclerosis. No significant aortic regular or aortic stenosis noted. 3. Isolated mitral annulus calcification. 4. Mild tricuspid regurgitation with probably mild pulmonary hypertension. 5. Trace pulmonic regurgitation. DD: BEVERLEY OWENS MD 03/29/19 1963 A&P: Bilateral PE VSS, O2 sat 97-98% 2 LNC. TTE as above. Hypercoagulable rouse pending. Thrombolysis as per Dr Ayers. IV Alteplase/IV Heparin gtt. Fibrinogen 700. The pt is reviewed by Dr Ayers this AM. Dr Ayers Recommends: D/C alteplase after current bag is completed today. D/C Heparin gtt when the pt starts Lovenox this PM. Start Lovenox this PM. 120mgSQ q12. Start Coumadin this PM. Will start 5 mg daily and monitor daily INR. Continue Lovenox until INR therapeutic. Pt states she has been on Coumadin in the past and was previously followed as per PCP. H/O prior DVT/PE post . H/O LA positive. Hypercoagulable rouse pending. VS, I&O, 24H, Fishbone Vital Signs/I&O Vital Signs Date Time Temp Pulse Resp B/P (MAP) Pulse Ox O2 Delivery O2 Flow Rate FiO2 03/31/19 07:00 79 149/65 (93) 98 2.0 03/31/19 04:00 98.0 22 03/28/19 18:10 Room Air I&O- Last 24 Hours up to 6 AM 03/31/19 06:00 Intake Total 1619.0 ml Output Total 1250 ml Balance 369.0 ml Laboratory Data 24H LABS Laboratory Tests 2 03/30/19 11:54: Activated Partial Thromboplast Time 40.4H, Fibrinogen 810H 03/30/19 17:43: Activated Partial Thromboplast Time 32.2, Fibrinogen 797H 03/31/19 00:03: Activated Partial Thromboplast Time 53.9H, Fibrinogen 740H 03/31/19 06:12: Activated Partial Thromboplast Time 43.3H, Fibrinogen 700H, Nucleated Red Blood Cells % (auto) 0.0, Anion Gap 5L, Glomerular Filtration Rate > 60.0, Blood Urea Nitrogen 9, Creatinine 0.80, Sodium Level 140, Potassium Level 4.0, Chloride Level 105, Carbon Dioxide Level 30, Calcium Level 9.1 CBC/BMP Laboratory Tests 03/30/19 11:54 03/30/19 17:43 03/31/19 00:03 03/31/19 06:12 Red Blood Count 4.74, Mean Corpuscular Volume 83.5, Mean Corpuscular Hemoglobin 26.6 L, Mean Corpuscular Hemoglobin Concent 31.8 L, Red Cell Distribution Width 13.5, Calcium Level 9.1 Roxanne Boudreaux Mar 31, 2019 10:10
--- NOTE | 2019-03-31 11:46 | IPNPDOC ---
Subjective Date Seen The patient was seen on 03/31/19. Subjective Chief Complaint/HPI Saloni was seen and examined this morning while lying upright in bed. She states her pleuritic left flank pain is mildly improved from yesterday, yet she continues to be in discomfort upon deep inspiration. Her O2 saturation dropped to 89% overnight and she was put on 2 L nasal cannula. After her sats ro[place] this morning, she was taken off supplemental oxygen is now breathing room air again. When she ambulates to the bathroom on her own power, her exertional dyspnea is improved from yesterday. She is yet to have a bowel movement since being admitted and overnight abdominal pain has resolved. She is eating and drinking without any issues. General: Denies: Chills Constitutional: Denies: Fever Pulmonary: Reports: Pleuritic Chest Pain (with inspiration); Denies: Dyspnea Cardiovascular: Denies: Chest Pain, Palpitations Gastrointestinal: Denies: Nausea, Vomiting, Abdominal Pain (resolved from last night), Diarrhea Genitourinary: Denies: Dysuria Neurological: Denies: Weakness, Numbness Objective Physical Examination General Exam: Positive: Alert, Cooperative, Mild Distress (associated with discomfort on inspiration) ENT Exam: Positive: Atraumatic, Mucous membr. moist/pink Neck Exam: Positive: Supple Chest Exam: Positive: Diminished (mildly diminished on inspiration due to associated left flank pain); Negative: Rales, Rhonchi, Wheezing Heart Exam: Positive: Regular Rhythm, Normal S1, Normal S2; Negative: Rubs Abdomen Exam: Positive: Normal bowel sounds, Soft; Negative: Tenderness, Mass, Other (nondistended) Extremity Exam: Positive: Normal pulses (2+ radial and posterior tibial pulses bilaterally), Swelling ( minimal, bilateral lower extremities); Negative: Tenderness (nontender, bilateral lower extremities) Skin Exam: Negative: Rash, Breakdown Neuro Exam: Positive: Strength at 5/5 X4 ext, Sensation Intact (to light touch upper extremity and lower show any bilaterally) Psych Exam: Positive: Mental status NL, Mood NL, Oriented x 3 Assessment /Plan Assessment 1. Bilateral pulmonary emboli -Patient underwent thrombolysis procedure on 03/29, performed by Dr. Ayers. A PICC line continues to run both alteplase and heparin. -Fibrinogen levels will be checked every 6 hours. We will continue to collaborate with Dr. Ayers on the next steps for patient. -Homocystine, antibody screen, factor II mutation and hypercoagulability panel are all pending at this time -Ultrasound bilateral lower extremity to evaluate clot burden showed no evidence of DVT and no acute finding -Patient had elevated CRP of 12.5 -Patient's PE presentation occurred in the period, 3 weeks after de livery (03/03/2019), while on prophylactic dose Lovenox 40 mg subcutaneous bid through -Recurrent, prior episode of PE was 7 years ago with first and delivery 2. Elevated blood pressure -Patient reports history of hypertension in without preeclampsia -Monitor blood pressure with treatment of underlying pulmonary emboli -If persistently elevated and pulmonary pressures elevated, will initiate antihypertensive -Blood pressure monitoring every 4 hours 3. Lupus anticoagulant syndrome -A hypercoagulable workup was ordered on 03/29 -We'll need outpatient referral for discharge with hematology oncology for determination of long-term care and prevention of possible future occurrences 4. Morbid obesity -Complicating care Plan/VTE VTE Prophylaxis Ordered?: Yes VS, I&O, 24H, [facility] Vital Signs/I&O Vital Signs Date Time Temp Pulse Resp B/P (MAP) Pulse Ox O2 Delivery O2 Flow Rate FiO2 03/31/19 07:00 79 149/65 (93) 98 2.0 03/31/19 04:00 98.0 22 03/28/19 18:10 Room Air I&O- Last 24 Hours up to 6 AM 03/31/19 06:00 Intake Total 1619.0 ml Output Total 1250 ml Balance 369.0 ml Laboratory Data 24H LABS Laboratory Tests 2 03/30/19 11:54: Activated Partial Thromboplast Time 40.4H, Fibrinogen 810H 03/30/19 17:43: Activated Partial Thromboplast Time 32.2, Fibrinogen 797H 03/31/19 00:03: Activated Partial Thromboplast Time 53.9H, Fibrinogen 740H 03/31/19 06:12: Activated Partial Thromboplast Time 43.3H, Fibrinogen 700H, Nucleated Red Blood Cells % (auto) 0.0, Anion Gap 5L, Glomerular Filtration Rate > 60.0, Blood Urea Nitrogen 9, Creatinine 0.80, Sodium Level 140, Potassium Level 4.0, Chloride Level 105, Carbon Dioxide Level 30, Calcium Level 9.1 CBC/BMP Laboratory Tests 03/30/19 11:54 03/30/19 17:43 03/31/19 00:03 03/31/19 06:12 Red Blood Count 4.74, Mean Corpuscular Volume 83.5, Mean Corpuscular Hemoglobin 26.6 L, Mean Corpuscular Hemoglobin Concent 31.8 L, Red Cell Distribution Width 13.5, Calcium Level 9.1 Attending Note Attending Note I have personally seen and examined the patient this am. I agree with the finding and the plan of care as documented above in the resident's note. Pateint is off alteplase. will start lovenox and coumadin this pm. will transfer to PCU. Plan will be to dc home with lovenox and coumadin Patient was again hypoxic during sleep requiring 2 l of oxygen. She may have underlying GRANT now worse due to acute pulmonary embolism Echo noted no right ventricular strain seen. NOLA MCCARTHY PGY-1 Mar 31, 2019 11:46 LUZMARIA BALDERAS MD Mar 31, 2019 15:43
[2019-03-31] MEDS: SENOKOT S TAB PO SCH (11:52)
[2019-03-31] MEDS ORDERED: DOCUSATE SODIUM 100 MG CAP PO PRN (12:00)
[2019-03-31] MEDS ORDERED: MOM 30ML SUSPENSION UDC PO PRN (12:00)
[2019-03-31 12:19] LABS: HEMATOCRIT 39.9 % (36.0-47.0); HEMOGLOBIN 12.8 g/dl (12.0-15.5)
[2019-03-31 12:28] LABS: INR 1.1; PROTHROMBIN TIME 13.9 SECONDS (11.8-14.0)
[2019-03-31] MEDS ORDERED: WARFARIN SOD 5 MG TAB PO SCH ×2 (17:00)
[2019-03-31] MEDS: ENOXAPARIN 100MG/1ML SYRINGE (J1650) SC SCH (17:49)
[2019-03-31] MEDS ORDERED: ENOXAPARIN 120 MG/0.8 ML SYR (J1650) SC SCH (18:00)
[2019-04-01 02:41] VITALS: BP 154/85
[2019-04-01] MEDS: ENOXAPARIN 100MG/1ML SYRINGE (J1650) SC SCH (05:29)
[2019-04-01] MEDS: SODIUM CHLORIDE 0.9% INJ 10 ML SYR IV SCH (05:31)
[2019-04-01] MEDS: SODIUM CHLORIDE 0.9% INJ 10 ML SYR IV PRN ×3 (05:33→05:36)
[2019-04-01 06:00] VITALS: BP 136/82
[2019-04-01 06:09] LABS: HEMOGLOBIN 12.8 g/dl (12.0-15.5); MEAN CORPUSCULAR HEMOGLOBIN 26.4 pg (27.0-33.0); MEAN CORPUSCULAR VOLUME 82.6 fl (80.0-96.0); PLATELET COUNT, AUTOMATED 270 10^3/uL (150-450); RED BLOOD COUNT 4.84 10^6/uL (4.00-5.40); WHITE BLOOD COUNT 10.8 10^3/uL (4.0-10.0)
[2019-04-01 06:18] LABS: INR 1.07; PROTHROMBIN TIME 13.6 SECONDS (11.8-14.0)
[2019-04-01 06:36] LABS: BLOOD UREA NITROGEN 8 MG/DL (7-18); CALCIUM LEVEL 8.6 MG/DL (8.5-10.1); CARBON DIOXIDE LEVEL 29 MEQ/L (21-32); CHLORIDE LEVEL 107 MEQ/L (98-107); CREATININE FOR GFR 0.77 MG/DL (0.55-1.30); GLOMERULAR FILTRATION RATE > 60.0 (>60); GLUCOSE, FASTING 95 MG/DL (70-100); POTASSIUM SERUM 4.3 MEQ/L (3.5-5.1); SODIUM LEVEL 141 MEQ/L (136-145)
[2019-04-01] MEDS: SENOKOT S TAB PO SCH (07:55)
--- NOTE | 2019-04-01 08:46 | IPNPDOC ---
Date Seen The patient was seen on 04/01/19. Progress Note Vascular Surgery Dr Ayers HPI: Patient is a 24-year-old female, presenting to the emergency room with chest pain and shortness of breath of sudden onset 03/28/19, she described CP as a sharp pain to her left sternum with radiation to back, bilateral shoulder blades. She was found to be tachycardic and tachypneic in the ED. CTA indicated moderate to large pulmonary emboli, right and left lower lobe pulmonary artery with moderate emboli extending to Infrahilar pulmonary arteries to lung bases. Of note, the pt is 3 weeks and was on 40 mg Lovenox twice a day during /post and this was continued up to her admission. Vascular surgery is consulted re PE. This AM the pt states she is feeling much better, has been OOB and took a shower. Denies any fevers, chills, weakness, fatigue, Headache, cough, palpitations, abdominal pain, N/V/D or changes in bowel or bladder habits. PMHx: H/O hypertension complicating , on clonidine in past. lupus anticoagulant positive, seen by Hematology in past pulmonary hypertension, H/O PE/DVT post 2011. On Lovenox, transitioned to Coumadin, AC discontinued 2013 per pt. H/O chronic DVT LLE. Previously followed as per Dr Olivia Kay. obesity. BMI 39.8. PSHX: tonsillectomy,adenoidectomy. tympanostomy tubes PE: GEN: 24yoF, appears stated age. Alert and oriented x 3. Pleasant, interactive. HEENT: Normocephalic, atraumatic. Moist mucous membranes. CHEST: Regular rate and rhythm, +S1, +S2 LUNGS: Clear to auscultation bilaterally. No wheezes, rales, or rhonchi. ABD: Round, soft, non-tender, non-distended. EXT: Pulses 2+ bilaterally dorsalis pedis and radial. No lower extremity edema appreciated. SKIN: [place], dry, warm. Capillary refill <2sec. No rashes. NEURO: Alert and oriented x 3. Cranial nerves III-XII are intact. No focal deficits appreciated. CTA Chest IMPRESSION: 1. Moderate to large pulmonary emboli right and left lower lobe pulmonary artery with moderate emboli extending into the infrahilar pulmonary arteries to the lung bases. 2. 4 cm area atelectasis and infiltrate left lung base probably related to the pulmonary embolus. Electronically signed by: Jose Everett On 03/28/2019 19:00:04 PM DD: JOSE EVERETT MD 03/28/19 1753 LE IMPRESSION: No acute findings. No evidence of deep vein thrombosis. Electronically signed by: Jose Everett On 03/28/2019 20:44:13 PM EKG SINUS TACHYCARDIA Nonspecific T wave abnormality Comparison tracing not on file Electronically Signed on 03-28-2019 20:58:13 EDT by Joby Ramirez DD: JOBY RAMIREZ MD 03/28/19 1910 TTE 2D COMMENTS: 1. Normal left ventricular size, wall thickness, and normal global left ventricular systolic function. The estimated left ventricular systolic ejection fraction is 60-65%. 2. Normal left atrium. Normal right atrium and right ventricle. 3. The atrial septum appeared to be normal without evidence of defect or shunt. 4. Normal aortic root. 5. No pericardial effusion. 6. Minimally calcified aortic valve with normal leaflet excursion. Mildly calcified mitral annulus with normal anterior mitral valve leaflet motion. Normal tricuspid valve and pulmonic valve. The proximal pulmonary artery branches were not well visualized. 7. The inferior vena cava was normal in size, central venous pressure is most likely normal. DOPPLER: It detects mild tricuspid regurgitation and trace pulmonic regurgitation. The calculated pulmonary artery systolic pressure is about 30 mmHg. Assessment of the left ventricular diastolic function appeared to be normal. IMPRESSION: 1. Normal global left ventricular systolic and diastolic function. 2. Aortic valve sclerosis. No significant aortic regular or aortic stenosis noted. 3. Isolated mitral annulus calcification. 4. Mild tricuspid regurgitation with probably mild pulmonary hypertension. 5. Trace pulmonic regurgitation. DD: BEVERLEY OWENS MD 03/29/19 1015 A&P: Bilateral PE. TTE as above. Hypercoagulable rouse pending. Thrombolysis as per Dr Ayers. IV Alteplase/IV Heparin gtt d/cd 03/31/19. The pt is reviewed by Dr Ayers this AM. Dr Ayers Recommends: Pt cleared from Vascular standpoint for discharge today. Continue Lovenox 120mgSQ q12 until INR is therapeutic. Continue Coumadin 5 mg daily, monitor INR. Pt should recheck INR Thu/ next week. Pt states she has been on Coumadin in the past and was previously followed as per PCP. Per Hospitalist, plan for PCP to manage INR. Pt should FU as outpt with Dr Ayers's office. Reviewed plan with Hospitalist, Dr Verdugo. H/O prior DVT/PE post . H/O LA positive. Hypercoagulable rouse pending. VS, I&O, 24H, [facility] Vital Signs/I&O Vital Signs Date Time Temp Pulse Resp B/P (MAP) Pulse Ox O2 Delivery O2 Flow Rate FiO2 04/01/19 06:00 97.5 91 20 136/82 (100) 97 03/31/19 08:00 2.0 03/28/19 18:10 Room Air I&O- Last 24 Hours up to 6 AM0 04/01/19 06:00 Intake Total 1402 ml Output Total 1350 ml Balance 52 ml Laboratory Data 24H LABS Laboratory Tests 2 03/31/19 12:06: Prothrombin Time 13.9, Prothromb Time International Ratio 1.10, Activated Partial Thromboplast Time 33.8, Fibrinogen 785H 04/01/19 05:58: Nucleated Red Blood Cells % (auto) 0.0 04/01/19 05:59: Prothrombin Time 13.6, Prothromb Time International Ratio 1.07 04/01/19 06:00: Anion Gap 5L, Glomerular Filtration Rate > 60.0, Blood Urea Nitrogen 8, Creatinine 0.77, Sodium Level 141, Potassium Level 4.3, Chloride Level 107, Carbon Dioxide Level 29, Calcium Level 8.6 CBC/BMP Laboratory Tests 03/31/19 12:06 04/01/19 05:58 Red Blood Count 4.84, Mean Corpuscular Volume 82.6, Mean Corpuscular Hemoglobin 26.4 L, Mean Corpuscular Hemoglobin Concent 32.0, Red Cell Distribution Width 13.6 04/01/19 06:00 Calcium Level 8.6 Roxanne Boudreaux Apr 01, 2019 08:46
--- NOTE | 2019-04-01 09:54 | DS.PDOC ---
Discharge Summary General Date of Admission Mar 28, 2019 at 19:28 Date of Discharge 04/01/2019 Attending Physician: LUZMARIA BALDERAS MD Specialist/Consultants Involve: Earnest Ayers MD Discharge Summary PROCEDURES PERFORMED DURING STAY: Local intraarterial Clot thrombolysis ADMITTING DIAGNOSES: 1. Pulmonary embolism DISCHARGE DIAGNOSES: 1. Bilateral pulmonary embolism s/p local thrombolysis 2. Hypertension in 3. Lupus anticoagulant syndrome with H/O iliac DVT and Pulmonary embolism during prior 7 years ago. 4. Obesity 5. Pulmonary Hypertension 6. H/O chronic DVT LLE. COMPLICATIONS/CHIEF COMPLAINT: Bilateral Pulmonary Embolism. HISTORY OF PRESENT ILLNESS: Saloni is a 24-year-old female with a past pertinent medical history of iliac vein DVT and bilateral pulmonary emboli in 2011 "a few weeks" following the of her first child, pulmonary hypertension, hypertension in without preeclampsia, and positive lupus anticoagulant, who presented to the ED on the afternoon of 03/28 with the chief complaints of dyspnea and left flank pain. She said the pain was most intense during inspiration. Her pain began at 1:30pm yesterday and was located along her sternum, but by 2:30/3:00 PM it had moved to her left shoulder blade and left flank. Also during that time period, her dyspnea worsened.. She was prophylactically placed on Lovenox 40 mg subcutaneously twice a day once it was known that she was . In the emergency department, a chest CT, chest x- ray, duplex lower extremity ultrasound, BMP, CBC with differential, PT and PTT, continuous cardiac and pulse oximetry monitoring, and 48 hour telemetry were all ordered. The patient was given a one time dose of Lovenox 120 mg subcutaneously. After admission to the hospital service, an echocardiogram, vascular consultation, and CMP were ordered. The CTA of the chest showed moderate to large pulmonary emboli in both the right and left pulmonary artery with moderate emboli extending to infrahilar pulmonary arteries to lung bases. In addition, a 2.4 cm area of atelectasis and infiltrate left lung base, probably related to her pulmonary emboli, was visualized. Her duplex lower extremity ultrasound had no acute finding and no evidence of DVT. Her initial white blood cell count was elevated at 14.7 and a repeat was 12.2.. HOSPITAL COURSE: Saloni was admitted under the care of the hospitalist team. Vascular surgery, Dr. Ayers, collaborated in Saloni's care throughout her inpatient stay. Dr. Ayers spoke with Saloni. On 03/29, and outlined a plan to perform a thrombolysis due to her extensive PE history and young age. Prior to the thrombolysis, Saloni was put on full therapeutic Lovenox dose. Saloni elected to go ahead with the thrombolysis. Post-thrombolysis, Saloni had a PICC line in place through which both heparin and alteplase were administered. Due to the PICC line alteplase Saloni was transferred to the ICU after day and a half of the alteplase running and finishing the full dose, Saloni was transferred out of the ICU to the floor. Saloni's anticoagulation consisted of Lovenox and warfarin over the final day in hospital. She was then subsequently discharged in the morning on 04/01. Throughout her inpatient stay, Saloni complained of moderate exertional dyspnea when ambulating to and from the bathroom as well as mild lower extremity swelling. She denied any chest pain, chest pressure, palpitations or dyspnea at rest. A consistent complaint for Saloni was left flank discomfort and mild pain with deep inhalation or cough. DISCHARGE MEDICATIONS: Please see below. ALLERGIES: Please see below. PHYSICAL EXAMINATION ON DISCHARGE: VITAL SIGNS: Please see below. General Exam: Positive: Alert, Cooperative, Mild Distress (associated with discomfort on inspiration) ENT Exam: Positive: Atraumatic, Mucous membr. moist/pink Neck Exam: Positive: Supple Chest Exam: Positive: Diminished (mildly diminished on inspiration due to associated left flank pain); Negative: Rales, Rhonchi, Wheezing Heart Exam: Positive: Regular Rhythm, Normal S1, Normal S2; Negative: Rubs Abdomen Exam: Positive: Normal bowel sounds, Soft; Negative: Tenderness, Mass, Other (nondistended) Extremity Exam: Positive: Normal pulses (2+ radial and posterior tibial pulses bilaterally), Swelling ( minimal, bilateral lower extremities); Negative: Tenderness (nontender, bilateral lower extremities) Skin Exam: Negative: Rash, Breakdown Neuro Exam: Positive: Strength at 5/5 X4 ext, Sensation Intact (to light touch upper extremity and lower show any bilaterally) Psych Exam: Positive: Mental status NL, Mood NL, Oriented x 3 LABORATORY DATA: Please see below. IMAGING: Vascular ultrasound, 03/28 showed no acute findings and no evidence of deep vein thrombosis CT Angiography, 03/28- showed 1.) moderate to large pulmonary emboli right and left lower lobe pulmonary artery with moderate emboli extending into the infrahilar pulmonary arteries to the lung bases. 2.) 4 cm area atelectasis and infiltrate left lung base probably related to the pulmonary embolus PROGNOSIS: Good ACTIVITY: [As tolerated]. DIET: [As tolerated] DISCHARGE INSTRUCTIONS & FOLLOW-UP INSTRUCTIONS: 1. Patient will have her blood redrawn on Thursday at her primary care physician's office. 2. Patient will follow-up with vascular surgery (Dr. Ayers) in 2 weeks on an outpatient basis. 3. In the event of a medical emergency, patient is instructed to return to the ED immediately. DISCHARGE CONDITION: [Stable]. TIME SPENT ON DISCHARGE: [35] minutes. Vital Signs/I&Os Vital Signs Date Time Temp Pulse Resp B/P (MAP) Pulse Ox O2 Delivery O2 Flow Rate FiO2 04/01/19 06:00 97.5 91 20 136/82 (100) 97 03/31/19 08:00 2.0 03/28/19 18:10 Room Air I&O- Last 24 Hours up to 6 AM0 04/01/19 06:00 Intake Total 1402 ml Output Total 1350 ml Balance 52 ml Laboratory Data Labs 24H Laboratory Tests 2 03/31/19 12:06: Prothrombin Time 13.9, Prothromb Time International Ratio 1.10, Activated Partial Thromboplast Time 33.8, Fibrinogen 785H 04/01/19 05:58: Nucleated Red Blood Cells % (auto) 0.0 04/01/19 05:59: Prothrombin Time 13.6, Prothromb Time International Ratio 1.07 04/01/19 06:00: Anion Gap 5L, Glomerular Filtration Rate > 60.0, Blood Urea Nitrogen 8, Creatinine 0.77, Sodium Level 141, Potassium Level 4.3, Chloride Level 107, Carbon Dioxide Level 29, Calcium Level 8.6 CBC/BMP Laboratory Tests 03/31/19 12:06 04/01/19 05:58 Red Blood Count 4.84, Mean Corpuscular Volume 82.6, Mean Corpuscular Hemoglobin 26.4 L, Mean Corpuscular Hemoglobin Concent 32.0, Red Cell Distribution Width 13.6 04/01/19 06:00 Calcium Level 8.6 Discharge Medications Scheduled Enoxaparin Sodium (Lovenox) 120 Mg/0.8 Ml Syringe, 120 MG SC BID Warfarin Sodium (Coumadin) 5 Mg Tablet, 1 TAB PO DAILY Allergies Coded Allergies: bee venom protein (honey bee) (Verified Allergy, Severe, throat swelling, 02/28/19) Cephalosporins (Verified Allergy, Intermediate, HIVES, 01/24/19) budesonide (Verified Allergy, Intermediate, HIVES, 02/28/19) as a child Attending Note Attending Note I saw and examined the patient. I agree with the finding and the plan of care as documented in the resident's note. I spent 35 mins in counselling the patient and family and coordinating the discharge. NOLA MCCARTHY PGY-1 Apr 01, 2019 09:54 LUZMARIA BALDERAS MD Apr 01, 2019 12:19
[2019-04-01 10:00] VITALS: BP 137/84
[2019-04-01] MEDS: ACETAMINOPHEN TAB 650MG DOSE (2X325MG) PO PRN (10:23)
[2019-04-01] MEDS ORDERED: COUM1TAB17 PO (10:24)
[2019-04-01] MEDS ORDERED: LOVE0.01 SC (10:24)
[2019-04-05 00:07] LABS: ANCA-ATYPICAL <1:20 titer (Neg:<1:20); ANTI THROMBIN 3 ANTIGEN IMMUNO 94 % (72-124); ANTI THROMBIN 3 FUNCT ACTIVITY 107 % (75-135); ANTINUCLEAR ANTIBODIES DIRECT Negative (Negative); CARDIOLIPIN IGA ANTIBODY <9 APL U/mL (0-11); CARDIOLIPIN IGG ANTIBODY <9 GPL U/mL (0-14); CARDIOLIPIN IGM ANTIBODY <9 MPL U/mL (0-12); CYTOPLASMIC NEUTROP AB ANCA-C <1:20 titer (Neg:<1:20); HOMOCYST(E)INE SERUM 7.2 umol/L (0.0-15.0); PERINUCLEAR AB ANCA-P <1:20 titer (Neg:<1:20); PROTEIN C ANTIGEN 80 % (60-150); PROTEIN S ANTIGEN FREE 56 % (57-157); PROTEIN S ANTIGEN TOTAL 89 % (60-150); SJOGREN'S ANTI SS-A <0.2 AI (0.0-0.9); SJOGREN'S ANTI SS-B <0.2 AI (0.0-0.9)
[2019-04-05 10:56] LABS: DRVV SCREEN 63.6 SEC
[2019-04-05 11:09] LABS: PTT LUPUS TYPE ANTICOAG SCREEN 1.5 (0-1.2)
[2019-04-05 11:15] LABS: DRVV CONFIRM 44.6 SEC; LUPUS CONFIRM RATIO 1.2
[2019-04-05 11:29] LABS: NORMALIZED RATIO 1.25 (0.00-1.20)
[2019-04-08 00:09] LABS: HEXAGONAL PHASE PHOSPHOLIPID 2 sec (0-11)
--- NOTE | 2019-04-28 09:00 | RO ---
DATE OF PROCEDURE: 03/29/2019 ATTENDING SURGEON: Dr. Levar Ayers PAROLE DIRECTOR: Lorena Hendrickson and Irma Cornell PREOPERATIVE DIAGNOSIS: Pulmonary embolus . POSTOPERATIVE DIAGNOSIS: Pulmonary embolus . PROCEDURE: Ultrasound and fluoroscopic guided left basilic vein 41 cm PICC line. INDICATION: The patient is a 24-year-old female with DVT and pulmonary embolus with shortness of breath and chest pain after having a baby. The patient will undergo a pulmonary thrombolysis. Risks, benefits and alternative options were discussed with the patient. ANESTHESIA: Local with 10 mL of 2% lidocaine mixed 0.5% Marcaine. FLUORO TIME: 0.1 minutes. CONTRAST: None. COMPLICATIONS: None. DRAINS: None. PROCEDURE: The patient was taken to the angiography suite, placed supine on the angiography room table and then prepped and draped in a standard surgical fashion. The left basilic vein was cannulated using ultrasound guidance the distance to the superior vena cava, right atrial junction was measured and correlated with 41 cm. PICC line was cut and advanced through the introducer sheath and positioned with the tip in the superior vena cava, right atrial junction. Both ports were aspirated and noted to aspirate easily and then flushed heparinized saline. Dressings were then applied. The patient tolerated the procedure well. All instrument, sponge, and needle counts were correct at the end the case. There were no complications. Dr. Ayers was present for and directed the entire case. The patient was transferred to the intensive care unit (ICU) in stable condition.
--- NOTE | 2019-04-28 09:15 | RO ---
DATE OF PROCEDURE: 04/01/2019 ATTENDING SURGEON: Dr. Levar Ayers [employer]IC TE[employer]ER: Irma Cornell and Lorena Hendrickson PREOPERATIVE DIAGNOSIS: Pulmonary embolus, shortness of breath, chest pain. POSTOPERATIVE DIAGNOSIS: Pulmonary embolus, shortness of breath, chest pain. PROCEDURE: Ultrasound and fluoroscopic guided right basilic vein cannulation with placement of a 47 cm dual-lumen catheter for central venous access and initiation of pulmonary thrombolysis. INDICATION: The patient is a 24-year-old female with pulmonary embolus with chest pain and shortness of breath who is . The patient will undergo pulmonary thrombolysis. ANESTHESIA: Local with 10 mL of 2% lidocaine mixed with 0.5% Marcaine. FLUORO TIME: 0.1 minutes. COMPLICATIONS: None. DRAINS: None. SPECIMENS: None. IMPLANTS: None. DESCRIPTION OF PROCEDURE: The patient was taken to the angiography suite, placed supine on the angiography table and then prepped and draped in a standard surgical fashion. The right basilic vein was cannulated using ultrasound guidance. Fluoroscopic guidance was used to place a dual-lumen catheter into the central venous system with the tip in the superior vena cava/right atrial junction. TPA was initiated through the dual-lumen catheter for a pulmonary thrombolysis. Dressings were applied. The patient tolerated the procedure well. All instrument, sponge and needle counts were correct at the end of the case. There were no complications. Dr. Ayers was present for and directed the entire case. The patient was transferred to the ICU for pulmonary thrombolysis.
== END 2019-04-01 12:03 | disposition home or self-care (01) | DRG 561 ==
LOC: M ED 17:39 → M ED INP 19:28 → M PCU 03-29 00:24 → M ICU 03-29 16:38 → M MSPAV 04-01 02:39
PROVIDERS: ADMIT Internal Medicine; ATTEND Internal Medicine Nephrology
PROC: 02HV33Z Insertion of Infusion Device into Superior Vena Cava, Percutaneous Approach (ICD-10-PCS; principal; 2019-03-29 16:14)
PROC: 3E04317 Introduction of Other Thrombolytic into Central Vein, Percutaneous Approach (ICD-10-PCS; 2019-04-01)
DX: O88.23 Thromboembolism in the puerperium (principal); I26.99 Other pulmonary embolism without acute cor pulmonale; D68.62 Lupus anticoagulant syndrome; I27.20 Pulmonary hypertension, unspecified; E66.01 Morbid (severe) obesity due to excess calories; O99.13 Other diseases of the blood and blood-forming organs and certain disorders involving the immune mechanism complicating the puerperium; Z68.39 Body mass index [BMI] 39.0-39.9, adult; J98.11 Atelectasis; O13.5 Gestational [pregnancy-induced] hypertension without significant proteinuria, complicating the puerperium; Z79.899 Other long term (current) drug therapy; Z88.1 Allergy status to other antibiotic agents; Z88.8 Allergy status to other drugs, medicaments and biological substances; Z91.030 Bee allergy status; O99.215 Obesity complicating the puerperium; O99.53 Diseases of the respiratory system complicating the puerperium

== ENCOUNTER → 2019-04-07 | Outpatient (CLI) | payer BC ==
[~2019-04-07] MED LIST changes: +ADVI100T PO; +COUM1TAB17 PO; +ENOX40IN3 SC; +IBUP200C25 PO; +LOVE0.01 SC
[2019-04-07 10:53] LABS: INR 2.42; PROTHROMBIN TIME 26.2 SECONDS (11.8-14.0)
== END ==
LOC: M LAB 09:51
PROVIDERS: ATTEND Family Medicine
DX: I26.99 Other pulmonary embolism without acute cor pulmonale (principal)

== ENCOUNTER → 2019-04-11 | Outpatient (CLI) | payer BC ==
[2019-04-11 14:51] LABS: INR 2.83; PROTHROMBIN TIME 29.7 SECONDS (11.8-14.0)
== END ==
LOC: M LAB 14:17
PROVIDERS: ATTEND Physician Assistant Medical
DX: I26.99 Other pulmonary embolism without acute cor pulmonale (principal)

== ENCOUNTER → 2019-04-15 | Outpatient (CLI) | payer BC ==
[2019-04-15 12:29] LABS: INR 2.03; PROTHROMBIN TIME 22.7 SECONDS (11.8-14.0)
== END ==
LOC: M LAB 11:07
PROVIDERS: ATTEND Family Medicine
DX: I26.99 Other pulmonary embolism without acute cor pulmonale (principal)

== ENCOUNTER → 2019-04-20 | Outpatient (CLI) | payer BC ==
[2019-04-20 13:57] LABS: INR 1.66; PROTHROMBIN TIME 19.4 SECONDS (11.8-14.0)
== END ==
LOC: M LAB 12:54
PROVIDERS: ATTEND Family Medicine
DX: I26.99 Other pulmonary embolism without acute cor pulmonale (principal)

== ENCOUNTER → 2019-04-22 | Outpatient (CLI) | payer BC ==
[2019-04-22 09:22] LABS: INR 1.73
== END ==
LOC: M LAB 08:01
PROVIDERS: ATTEND Family Medicine
DX: I26.99 Other pulmonary embolism without acute cor pulmonale (principal)

== ENCOUNTER → 2019-04-29 | Outpatient (CLI) | payer BC ==
[2019-04-29 14:24] LABS: INR 2.48; PROTHROMBIN TIME 26.7 SECONDS (11.8-14.0)
== END ==
LOC: M LAB 13:53
PROVIDERS: ATTEND Family Medicine
DX: I26.99 Other pulmonary embolism without acute cor pulmonale (principal)

== ENCOUNTER → 2019-05-06 | Outpatient (CLI) | payer BC ==
[2019-05-06 15:43] LABS: INR 2.59; PROTHROMBIN TIME 27.6 SECONDS (11.8-14.0)
== END ==
LOC: M LAB 15:07
PROVIDERS: ATTEND Surgery Vascular Surgery
DX: I26.09 Other pulmonary embolism with acute cor pulmonale (principal)

== ENCOUNTER 2019-05-24 13:32 | Emergency (ER) | payer BC ==
[~2019-05-24] VITALS: Ht 175.3 cm; Wt 123.7 kg
[2019-05-24] MEDS ORDERED: ACET-683 PO (13:41)
[2019-05-24 14:09] LABS: BASO % 0.4 % (0.0-1.0); EOS # 0.1 10^3/uL (0.0-0.5); EOS % 1.7 % (0.0-3.0); HEMATOCRIT 42.6 % (36.0-47.0); HEMOGLOBIN 13.7 g/dl (12.0-15.5); LYMPH % 25.8 % (24.0-44.0); MEAN CORPUSCULAR HEMOGLOBIN 26.1 pg (27.0-33.0); MEAN CORPUSCULAR HGB CONC 32.2 g/dl (32.0-36.5); MEAN CORPUSCULAR VOLUME 81.3 fl (80.0-96.0); MONO # 0.5 10^3/uL (0.0-0.8); MONO % 6.5 % (0.0-5.0); NEUTROPHILS % 65.3 % (36.0-66.0); PLATELET COUNT, AUTOMATED 368 10^3/uL (150-450); RED BLOOD COUNT 5.24 10^6/uL (4.00-5.40); WHITE BLOOD COUNT 7.7 10^3/uL (4.0-10.0)
[2019-05-24 14:20] LABS: INR 1.83; PROTHROMBIN TIME 20.9 SECONDS (11.8-14.0)
[2019-05-24 14:23] LABS: D-DIMER QUANT 352.2 ng/ml (<500)
[2019-05-24 14:31] LABS: HCG, SERUM QUALITATIVE NEGATIVE (NEGATIVE)
[2019-05-24 14:34] LABS: BLOOD UREA NITROGEN 9 MG/DL (7-18); CALCIUM LEVEL 9.2 MG/DL (8.5-10.1); CARBON DIOXIDE LEVEL 27 MEQ/L (21-32); CHLORIDE LEVEL 107 MEQ/L (98-107); CK-MB VALUE MASS 1.3 NG/ML (<3.6); CPK CREATINE PHOSPHOKINASE 105 U/L (26-192); CREATININE FOR GFR 0.71 MG/DL (0.55-1.30); GLOMERULAR FILTRATION RATE > 60.0 (>60); GLUCOSE, FASTING 103 MG/DL (70-100); LIPASE 114 U/L (73-393); MB/CK RELATIVE INDEX 1.24 (< OR =4); POTASSIUM SERUM 4.7 MEQ/L (3.5-5.1); SODIUM LEVEL 139 MEQ/L (136-145); TROPONIN I < 0.02 NG/ML (< 0.10)
[2019-05-24] MEDS ORDERED: ISOVUE-370 76% 100ML VIAL (Q9967) As Ordered ONE (14:35)
--- NOTE | 2019-05-24 15:26 | REP ---
CT PULMONARY ANGIOGRAM: With IV contrast. HISTORY: Shortness of breath. History of pulmonary embolus. COMPARISON STUDIES: Comparison CT pulmonary angio March 28, 2019. This prior study was positive for bilateral pulmonary emboli. CONTRAST DOSE: 75 mL of Isovue [address] TECHNIQUE: Helical scanning is acquired and overlapping 1.5 mm and contiguous 3 mm axial images are reformatted. In addition, maximum intensity projection and multiplanar re-formation images are generated in sagittal and coronal imaging projections. CT PULMONARY ANGIOGRAPHIC FINDINGS: There is good opacification of the pulmonary arterial tree today and there is no CT evidence of pulmonary embolus. Maximal intensity projection images show no evidence of vessel cutoff or filling defect on either side. There is no evidence of aortic aneurysm or dissection. No pleural or pericardial effusion is seen. No hilar or mediastinal mass or adenopathy is observed. There is a cyst in the upper pole left kidney measuring 18 mm in greatest diameter. Visualized upper abdominal structures are otherwise unremarkable. No adenopathy or mass seen. The lung glover show no evidence of pulmonary nodule, mass, or infiltrate. Bone window settings show no significant bony abnormality. IMPRESSION: Small cyst upper pole left kidney. Otherwise negative CT pulmonary angiogram. There is no CT evidence of pulmonary embolism. Electronically Signed by Chandler Stone MD 05/24/2019 04:57 P
[2019-05-24 15:30] VITALS: BP 138/57
--- NOTE | 2019-05-24 19:25 | ECGEPIP ---
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
== END 2019-05-24 15:46 | disposition home or self-care (01) ==
LOC: M ED 13:32
DX: R07.89 Other chest pain (principal); R06.02 Shortness of breath; M32.9 Systemic lupus erythematosus, unspecified; Z79.01 Long term (current) use of anticoagulants; Z88.8 Allergy status to other drugs, medicaments and biological substances; Z91.030 Bee allergy status
CPT/HCPCS: 36415; 71275; 80048; 82550; 82553; 83690; 84484; 84703; 85025; 85379; 85610; 93005; 93041; 94760; 99285; Q9967

== ENCOUNTER → 2019-06-06 | Outpatient (CLI) | payer BC ==
[2019-06-06 10:10] LABS: INR 2.03; PROTHROMBIN TIME 22.7 SECONDS (11.8-14.0)
== END ==
LOC: M LAB 09:12
PROVIDERS: ATTEND Surgery Vascular Surgery
DX: I26.09 Other pulmonary embolism with acute cor pulmonale (principal)

== ENCOUNTER → 2019-06-14 | Outpatient (CLI) | payer BC ==
[2019-06-14 19:34] LABS: INR 2.09; PROTHROMBIN TIME 23.3 SECONDS (11.8-14.0)
== END ==
LOC: M LAB 17:53
PROVIDERS: ATTEND Surgery Vascular Surgery
DX: I26.09 Other pulmonary embolism with acute cor pulmonale (principal)

== ENCOUNTER 2020-08-29 06:48 | Emergency (ER) | payer BC ==
[~2020-08-29] VITALS: Ht 175.3 cm; Wt 126.4 kg
[2020-08-29] MEDS ORDERED: ACETAMINOPHEN 500 MG TAB PO ONE (07:30)
--- NOTE | 2020-08-29 07:45 | REP ---
INDICATION: R knee pain, reported dislocation, h/o R knee dislocation COMPARISON: 01/20/2007. TECHNIQUE: There are 4 views. FINDINGS: There is no fracture or dislocation. Mineralization and joint spaces are normal. There are no calcifications or foreign bodies. There is no dislocation. There is no effusion. IMPRESSION: Essentially negative right knee. <Electronically signed by Zane Davies > 08/29/20 [id number]
[2020-08-29 08:31] VITALS: BP 154/86
== END 2020-08-29 08:30 | disposition home or self-care (01) ==
LOC: M ED 06:48
DX: S83.91XA Sprain of unspecified site of right knee, initial encounter (principal); M22.01 Recurrent dislocation of patella, right knee; W22.09XA Striking against other stationary object, initial encounter; Y92.019 Unspecified place in single-family (private) house as the place of occurrence of the external cause; Y93.9 Activity, unspecified; Y99.9 Unspecified external cause status; I10 Essential (primary) hypertension; M32.9 Systemic lupus erythematosus, unspecified; Z86.718 Personal history of other venous thrombosis and embolism; Z88.8 Allergy status to other drugs, medicaments and biological substances

== ENCOUNTER → 2020-11-08 | Outpatient (REF) | LOC: M LABSMTC 12:30 | PROVIDERS: ATTEND Pediatrics | DX: Z11.52 Encounter for screening for COVID-19 (principal) ==

== ENCOUNTER → 2020-12-26 | Outpatient (REF) | LOC: M LABSMTC 12:29 | PROVIDERS: ATTEND Pediatrics | DX: Z20.822 Contact with and (suspected) exposure to COVID-19 (principal) ==

== ENCOUNTER → 2020-12-31 | Outpatient (REF) | payer BC ==
[2020-12-31 15:30] LABS: HEMATOCRIT 43.2 % (36.0-47.0); HEMOGLOBIN 13.6 g/dl (12.0-15.5); MEAN CORPUSCULAR HEMOGLOBIN 25.9 pg (27.0-33.0); MEAN CORPUSCULAR HGB CONC 31.5 g/dl (32.0-36.5); MEAN CORPUSCULAR VOLUME 82.1 fl (80.0-96.0); PLATELET COUNT, AUTOMATED 372 10^3/uL (150-450); RED BLOOD COUNT 5.26 10^6/uL (4.00-5.40); WHITE BLOOD COUNT 10.7 10^3/uL (4.0-10.0)
== END ==
LOC: M PLALAB 12:08
PROVIDERS: ATTEND Obstetrics & Gynecology
DX: N93.9 Abnormal uterine and vaginal bleeding, unspecified (principal)

== ENCOUNTER → 2021-01-18 | Outpatient (CLI) | payer BC ==
--- NOTE | 2021-01-18 13:41 | REP ---
INDICATION: N93.9 ABNORMAL UTERINE BLEEDING. COMPARISON: None. TECHNIQUE: Transabdominal and transvaginal scanning performed. FINDINGS: Uterine dimensions are 10.3 x 5.6 x 6.8 cm. Endometrial echo is 13 mm in AP dimension and centrally placed. There is an IUD within the endometrial canal. The bladder measures 11.7 x 4.0 x 7.7cm. The right ovary has dimensions of 4.1 x 3.0 x 2.8 cm. It's Doppler flow is normal with a resistive index of 0.59. The left ovary dimensions are 3.4 x 2.1 x 2.5 cm. It's Doppler flow was normal with resistive index of 0.63. Two complex cystic structures in the right ovary are seen, 2.6 x 2.2 x 2.1 cm and 1.9 x 1.3 x 1.9 cm. No free fluid is seen in the cul-de-sac. There are a few nabothian cysts in the cervix. IMPRESSION: IUD in good position within the endometrial canal. Two complex follicles or resolving cysts right ovary. <Electronically signed by Zane Norris > 01/18/21 [id number]
== END ==
LOC: M WHC 12:25
PROVIDERS: ATTEND Obstetrics & Gynecology
DX: N93.9 Abnormal uterine and vaginal bleeding, unspecified (principal)

== ENCOUNTER → 2021-04-02 | Outpatient (CLI) | payer BC ==
--- NOTE | 2021-04-02 18:17 | REP ---
INDICATION: ABNORMAL UTERINE AND VAGINAL BLEEDING, UNSPECIFIED COMPARISON: 08/26/2012. TECHNIQUE: PA/Lateral FINDINGS: Lungs: Clear, no infiltrate. Heart: Normal in size. Mediastinum: Mediastinal silhouette unremarkable. Pleural angles: Unremarkable.. Bones and soft tissues: Unremarkable. IMPRESSION: No acute pulmonary disease. <Electronically signed by Zane Norris > 04/02/21 [id number]
== END ==
LOC: M RAD 17:53
PROVIDERS: ATTEND Family Medicine
DX: N93.9 Abnormal uterine and vaginal bleeding, unspecified (principal)

== ENCOUNTER → 2021-04-02 | Outpatient (CLI) | payer BC ==
[2021-04-02 08:57] LABS: HEMATOCRIT 42.2 % (36.0-47.0); HEMOGLOBIN 13.2 g/dl (12.0-15.5); MEAN CORPUSCULAR HEMOGLOBIN 25.7 pg (27.0-33.0); MEAN CORPUSCULAR HGB CONC 31.3 g/dl (32.0-36.5); MEAN CORPUSCULAR VOLUME 82.3 fl (80.0-96.0); PLATELET COUNT, AUTOMATED 356 10^3/uL (150-450); RED BLOOD COUNT 5.13 10^6/uL (4.00-5.40); WHITE BLOOD COUNT 7.7 10^3/uL (4.0-10.0)
[2021-04-02 09:04] LABS: INR 1.02; PROTHROMBIN TIME 13.6 SECONDS (12.5-14.3)
[2021-04-02 09:05] LABS: PARTIAL THROMBOPLASTIN TIME 30.8 SECONDS (24.2-38.5)
[2021-04-02 10:03] LABS: ALT/SGPT 24 U/L (12-78); BILIRUBIN,TOTAL 0.5 MG/DL (0.2-1.0); BLOOD UREA NITROGEN 10 MG/DL (7-18); CALCIUM LEVEL 9.4 MG/DL (8.5-10.1); CARBON DIOXIDE LEVEL 26 MEQ/L (21-32); CHLORIDE LEVEL 110 MEQ/L (98-107); CREATININE FOR GFR 0.82 MG/DL (0.55-1.30); GLOMERULAR FILTRATION RATE > 60.0 (>60); GLUCOSE, FASTING 95 MG/DL (70-100); POTASSIUM SERUM 4.7 MEQ/L (3.5-5.1); SODIUM LEVEL 141 MEQ/L (136-145); TOTAL PROTEIN 7.2 GM/DL (6.4-8.2)
== END ==
LOC: M LAB 07:14
PROVIDERS: ATTEND Family Medicine
DX: N93.9 Abnormal uterine and vaginal bleeding, unspecified (principal)

== ENCOUNTER → 2021-04-04 | Outpatient (REF) | payer BC | LOC: M SFHCCLAY 08:00 | PROVIDERS: ATTEND Family Medicine | DX: Z01.818 Encounter for other preprocedural examination (principal); N93.9 Abnormal uterine and vaginal bleeding, unspecified; Z53.9 Procedure and treatment not carried out, unspecified reason ==

== ENCOUNTER → 2021-04-08 | Outpatient (CLI) | payer BC | LOC: M LABSMTC 09:11 | PROVIDERS: ATTEND Anesthesiology | DX: Z01.812 Encounter for preprocedural laboratory examination (principal); Z20.822 Contact with and (suspected) exposure to COVID-19 ==

== ENCOUNTER 2021-04-12 06:07 | Day surgery (SDC) | payer BC ==
[2021-04-12] VITALS (7 sets, daily range): BP systolic 120–150; BP diastolic 58–72
[~2021-04-12] VITALS: Ht 175.3 cm; Wt 120.2 kg
[2021-04-12] MEDS ORDERED: LR 1,000 ML IV ONE (06:35)
[2021-04-12] MEDS ORDERED: ceFAZolin SOD 2 GM in IV 1 EA IV ONE (06:35)
[2021-04-12 06:48] LABS: HEMATOCRIT 42.7 % (36.0-47.0); HEMOGLOBIN 13.6 g/dl (12.0-15.5); MEAN CORPUSCULAR HEMOGLOBIN 26.1 pg (27.0-33.0); MEAN CORPUSCULAR HGB CONC 31.9 g/dl (32.0-36.5); PLATELET COUNT, AUTOMATED 378 10^3/uL (150-450); RED BLOOD COUNT 5.21 10^6/uL (4.00-5.40); WHITE BLOOD COUNT 9.5 10^3/uL (4.0-10.0)
[2021-04-12] MEDS ORDERED: BUPIVACAINE HCL 0.25% 30ML VIAL As Ordered ONE (07:12)
[2021-04-12] MEDS ORDERED: METHYLENE BLUE 0.5% (5MG/ML) 10 ML AMP (PROVAYBLUE) As Ordered ONE (07:12)
[2021-04-12] MEDS ORDERED: fentaNYL 250 MCG/5 ML INJECTION (J3010) As Ordered ONE (07:14)
[2021-04-12] MEDS ORDERED: LIDOCAINE 2% 100MG/5ML SDV (FOR ANES.) As Ordered ONE (07:14)
[2021-04-12] MEDS ORDERED: MIDAZOLAM INJ 2MG/2ML VIAL (J2250 PER 1MG) As Ordered ONE (07:14)
[2021-04-12] MEDS ORDERED: propofoL 200 MG/20 ML VIAL As Ordered ONE (07:14)
[2021-04-12] MEDS ORDERED: ROCURONIUM BROMIDE 50 MG/5 ML VIAL As Ordered ONE ×2 (07:14→08:41)
[2021-04-12] MEDS ORDERED: dexameTHASONE 4 MG/ML 1ML VIAL (J1100 PER 1MG) As Ordered ONE (07:22)
[2021-04-12 07:39] LABS: HCG, SERUM QUALITATIVE NEGATIVE (NEGATIVE)
[2021-04-12] MEDS ORDERED: GLYCOPYRROLATE INJ 0.2 MG/ML 2 ML VIAL As Ordered ONE (08:37)
[2021-04-12] MEDS ORDERED: LACRILUBE (AKWA TEARS) OPHTH OINT 3.5 GM As Ordered ONE (08:37)
[2021-04-12] MEDS ORDERED: ACETAMINOPHEN 1000MG 100ML IV BTL (OFIRMEV) (J0131 PER 10MG) As Ordered ONE (08:57)
[2021-04-12] MEDS ORDERED: SUGAMMADEX SODIUM 500 MG/5 ML VIAL (BRIDION) As Ordered ONE (08:57)
[2021-04-12] MEDS ORDERED: HYDROmorphone HCL 2 MG/ML 1ML VIAL (J1170) As Ordered ONE ×2 (08:57→10:07)
[2021-04-12] MEDS ORDERED: ONDANSETRON 4MG/2ML VIAL As Ordered ONE (08:59)
[2021-04-12] MEDS ORDERED: LABETALOL 100MG/20ML VIAL As Ordered ONE (09:06)
[2021-04-12] MEDS ORDERED: KETOROLAC 60MG 2ML VIAL As Ordered ONE (09:44)
--- NOTE | 2021-04-12 09:52 | ROOPDOC ---
[facility] Report Of Operation Report of Operation DATE OF PROCEDURE: 04/12/2021 PREPROCEDURE DIAGNOSES: Abnormal uterine bleeding, chronic pelvic pain. POSTPROCEDURE DIAGNOSES: Same. PROCEDURE: Robotic-assisted total laparoscopic hysterectomy, bilateral salpingectomy, cystoscopy SURGEON: Rodolfo Beach D.O. FACOG GUEST SERVICES ASSISTANT: Trish Fair ANESTHESIA: General endotracheal. ESTIMATED BLOOD LOSS: Approximately 200 mL. FLUIDS REPLACED: 1200 mL LR URINE OUTPUT: 300 mL COMPLICATIONS: None. FINDINGS: Normal-appearing ovaries bilaterally. Uterus was approximately 10-12 centimeters in greatest dimension. Cystoscopy: Bilateral ureteral orifice efflux, no bladder injury/suture material. PREOPERATIVE ANTIBIOTIC PROPHYLAXIS: Ancef 2 g IV 1. SPECIMEN(S): Uterus w/ cervix, bilateral fallopian tubes DESCRIPTION OF PROCEDURE: The patient was counseled, consented on the respective benefits, indications, alternatives of procedure. Informed consent was obtained. She was taken to the operating room with an IV running. She was placed on the operating table in dorsal supine position. Gen. anesthesia was administered and the airway was secured without any difficulty. She was placed in the low lithotomy position. . She was prepared and draped in the normal sterile fashion. A time out was performed per protocol. A Gomez catheter was placed under sterile conditions. A sterile speculum was placed resulting in good visualization of the cervix. A single-tooth tenaculum was used to grasp the anterior lip cervix. The cervix was sequentially dilated with Sharan dilators. A V-Care uterine manipulator was placed without any difficulty. The single-tooth tenaculum was removed, as well as the speculum. A sterile glove switch was performed. Attention was turned to the abdomen. A 2mm incision was made in the umbilicus, and through this incision a Veress needle was inserted into the intraperitoneal cavity. Intraperitoneal placement was confirmed with ease of flow of normal saline, positive drop test, no return on aspiration, and an opening pressure of less than 10 mmHg upon initial insufflation. The abdomen was insufflated with 2 L of gas. The Veress needle was removed. A supraumbilical 8 mm incision was made. Through this incision, the robotic trochar/cannula was inserted into the intraperitoneal cavity under direct visualization. No incidental bleeding nor injury was noted. Patient was placed in 30 Trendelenburg. The right and left trocars/cannulas were placed on both the right and left side through 8 mm incisions, guided by laparoscopic visualization. No incidental bleeding nor injury was noted. The robot was docked in typical fashion. The instruments were inserted, guided by laparoscopic visualization. My attention was turned to the robotic console. Using the vessel sealer device, the right and left fallopian tubes were amputated. The fallopian tubes were brought through the assist-port cannula without any difficulty. The right utero-ovarian ligament and right round ligament were sequentially clamped, coagulated and transected with the vessel sealer device. The vesicouterine peritoneum was dissected with the vessel sealer device to create the bladder flap, thus mobilizing the lower uterine segment and cervix off of the bladder. T he right uterine vasculature was sequentially clamped, coagulated and transected above the colpotomy cup. The left utero-ovarian ligament and left round ligament were sequentially clamped, coagulated and transected with the vessel sealer device. The remainder of the bladder flap was dissected using the vessel sealer device and blunt dissection. The left uterine vasculature was sequentially clamped, coagulated and transected above the colpotomy cup. The outline of the entire V- care colpotomy cup was able to be delineated. Excellent blanching of the uterus was noted. A circumferential colpotomy was performed using the da Americo monopolar nawaf, following the contour of the cup. The amputated cervix and uterus were brought through the colpotomy into and out of the vagina, intact as one unit. The colpotomy was closed with the V-lock barbed suture in running fashion, thus creating the vaginal cuff. Excellent hemostasis was noted throughout the steps above. Mike was placed over the vaginal cuff to ensure hemostasis. The instruments were removed from the abdomen and the robot was un- docked. The gas was released from the abdomen and the patient was taken out of Trendelenburg. I re-scrubbed, and attention was turned to the pelvis. The Gomez catheter was removed. The cystoscope was placed transurethrally into the bladder and normal saline was instilled. No bladder injury/suture material was noted. IV methylene blue had been administered by anesthesia and bilateral UO efflux was confirmed. The fluid was drained out of the bladder through the cystoscope device, then the cystoscope was removed. The vagina was copiously irrigated. A sterile digital vaginal exam revealed no significant bleeding and an intact vaginal cuff. A sterile glove switch was performed. The da Americo cannulas were removed. The skin incisions were closed with 4-0 Monocryl in subcuticular fashion. Sponge, n eedle and instrument counts were correct per protocol. The patient tolerated the entire procedure very well. She was transferred to the PACU in good and stable condition. DO FRANCISCO Ramos JONATHAN R. DO Apr 12, 2021 09:52
[2021-04-12] MEDS ORDERED: ONDANSETRON 4MG/2ML VIAL IV PRN ×2 (09:55→10:20)
[2021-04-12] MEDS ORDERED: OXYC1TAB23 PO (09:55)
[2021-04-12] MEDS ORDERED: PERCOCET 5MG/325MG TAB PO PRN (09:55)
[2021-04-12] MEDS ORDERED: DOK1CAP7 PO (09:57)
[2021-04-12] MEDS ORDERED: IBUP80TA PO (09:57)
[2021-04-12] MEDS ORDERED: ELIQ5TAB PO (09:57)
[2021-04-12] MEDS: HYDROMORPHONE HCL 0.5 MG/ 0.5 ML SYRINGE (J1170 PER 1) IV PRN ×3 (10:06→10:28)
[2021-04-12] MEDS ORDERED: oxyCODONE 5MG TAB PO PRN (10:20)
[2021-04-12] MEDS ORDERED: LR 1,000 ML IV SCH (10:20)
[2021-04-12] MEDS ORDERED: fentaNYL 100 MCG/2 ML INJECTION (J3010) IV PRN (10:20)
[2021-04-12] MEDS: LR 1,000 ML IV SCH ×3 (10:24→23:00)
[2021-04-12] MEDS: KETOROLAC 30 MG/ML 1ML VIAL IV SCH ×2 (16:05→21:25)
[2021-04-12] MEDS: DOCUSATE SODIUM 100MG CAPSULE PO SCH (21:25)
[2021-04-13] VITALS: BP 116/65
[2021-04-13] MEDS: PERCOCET 5MG/325MG TAB PO PRN ×2 (01:18→07:31)
[2021-04-13] MEDS: KETOROLAC 30 MG/ML 1ML VIAL IV SCH ×2 (03:55→11:04)
[2021-04-13 04:00] VITALS: BP 116/55
[2021-04-13] MEDS: DOCUSATE SODIUM 100MG CAPSULE PO SCH (07:31)
[2021-04-13 08:00] VITALS: BP 137/61
[2021-04-13] MEDS: LR 1,000 ML IV SCH (08:40)
[2021-04-13] MEDS ORDERED: IBUPROFEN 800 MG TAB PO SCH (18:00)
== END 2021-04-13 11:25 | disposition home or self-care (01) ==
LOC: M SDC 06:07 → M PED 11:15 → M SDC 04-13 11:25
PROVIDERS: ATTEND Obstetrics & Gynecology
DX: N93.9 Abnormal uterine and vaginal bleeding, unspecified (principal); Z30.432 Encounter for removal of intrauterine contraceptive device; N80.0 Endometriosis of uterus; N72 Inflammatory disease of cervix uteri; Z86.711 Personal history of pulmonary embolism; Z91.030 Bee allergy status; Z88.8 Allergy status to other drugs, medicaments and biological substances; Z88.1 Allergy status to other antibiotic agents
CPT/HCPCS: 36415; 58301; 58571; 84703; 85027; 86850; 86900; 86901; 88307; 96374; 96376; J0131; J0690; J1100; J1170; J1885; J2250; J2405; J3010; Q9968; S2900

== ENCOUNTER → 2021-07-20 | Outpatient (REF) ==
[~2021-07-20] MED LIST changes: +DOK1CAP4 PO; +ELIQ5TAB PO; +OXYC1TAB23 PO
[2021-07-20 12:02] LABS: RSV AMPLIFICATION NEGATIVE (NEGATIVE)
== END ==
LOC: M EMP 11:04
PROVIDERS: ATTEND Family Medicine
DX: Z20.822 Contact with and (suspected) exposure to COVID-19 (principal)

== ENCOUNTER → 2021-07-22 | Outpatient (REF) ==
[2021-07-22 08:45] LABS: RSV AMPLIFICATION NEGATIVE (NEGATIVE)
== END ==
LOC: M EMP 07:40
PROVIDERS: ATTEND Family Medicine
DX: Z20.822 Contact with and (suspected) exposure to COVID-19 (principal)

== ENCOUNTER 2021-09-30 23:53 | Emergency (ER) | payer BC ==
[~2021-09-30] VITALS: Ht 175.3 cm; Wt 123.6 kg
[2021-10-01] MEDS ORDERED: BENZONATATE 100MG CAPSULE PO ONE (00:40)
[2021-10-01] MEDS ORDERED: predniSONE 20 MG TAB PO ONE (00:40)
[2021-10-01] MEDS: ALBUTEROL 90 MCG/ACT 8GM HFA INHALER INH SCH ×2 (01:24→01:26)
[2021-10-01] MEDS ORDERED: BENZ200C70 PO (02:04)
[2021-10-01] MEDS ORDERED: PROAAER10 INH (02:04)
[2021-10-01] MEDS ORDERED: PRED20TA PO (02:04)
[2021-10-01 02:15] VITALS: BP 155/84
== END 2021-10-01 02:23 | disposition home or self-care (01) ==
LOC: M ED 23:53
DX: U07.1 COVID-19 (principal); R06.02 Shortness of breath; R05.9 Cough, unspecified; Z86.718 Personal history of other venous thrombosis and embolism; Z88.1 Allergy status to other antibiotic agents; Z88.8 Allergy status to other drugs, medicaments and biological substances; Z91.030 Bee allergy status; Z79.899 Other long term (current) drug therapy

== ENCOUNTER → 2022-03-25 | Outpatient (CLI) | payer BC ==
[~2022-03-25] MED LIST changes: +BENZ200C70 PO; +PRED20TA PO; +PROAAER10 INH
[2022-03-25 16:06] LABS: HEPATITIS B SURFACE ANTIBODY NEGATIVE (POSITIVE)
== END ==
LOC: M LAB 11:19
PROVIDERS: ATTEND Family Medicine
DX: Z11.1 Encounter for screening for respiratory tuberculosis (principal); Z78.9 Other specified health status

== ENCOUNTER 2022-06-01 11:03 | Emergency (ER) | payer BC ==
[~2022-06-01] VITALS: Ht 175.3 cm; Wt 126.4 kg
[2022-06-01 11:03] VITALS: BP 142/74
[2022-06-01] MEDS ORDERED: IBUP200C25 PO (11:10)
[2022-06-01] MEDS ORDERED: EPIN0.3I11 (11:10)
[2022-06-01] MEDS ORDERED: ACETAMINOPHEN 500 MG TAB PO ONE (12:10)
== END 2022-06-01 12:35 | disposition home or self-care (01) ==
LOC: M ED 11:03
DX: J06.9 Acute upper respiratory infection, unspecified (principal); B34.8 Other viral infections of unspecified site; Z91.030 Bee allergy status; Z88.1 Allergy status to other antibiotic agents; Z88.8 Allergy status to other drugs, medicaments and biological substances; Z79.899 Other long term (current) drug therapy

== ENCOUNTER → 2022-08-31 | Outpatient (REF) ==
[~2022-08-31] MED LIST changes: +EPIN0.3I11
[2022-08-31 17:17] LABS: RSV AMPLIFICATION NEGATIVE (NEGATIVE)
== END ==
LOC: M LABSMTC 10:51
PROVIDERS: ATTEND Family Medicine
DX: Z20.818 Contact with and (suspected) exposure to other bacterial communicable diseases (principal)

== ENCOUNTER → 2024-08-30 | Outpatient (REF) | LOC: M EMP 08:29 | PROVIDERS: ATTEND Family Medicine | DX: Z20.822 Contact with and (suspected) exposure to COVID-19 (principal) ==

== ENCOUNTER → 2024-12-06 | Outpatient (REF) | LOC: M EMP 09:30 | PROVIDERS: ATTEND Family Medicine | DX: Z11.52 Encounter for screening for COVID-19 (principal) ==